=== PATIENT | male | born 1980 | race Caucasian/White ===

== ENCOUNTER 2017-06-02 00:27 | Emergency (ER) | payer BC ==
--- NOTE | 2017-06-02 00:41 | EDM.PDOC ---
ED HPI GENERAL MEDICAL PROBLEM - General Stated Complaint: LEFT KNEE PAIN Time Seen by Provider: 06/02/17 00:39 History Limitations: Reports: Language Barrier - History of Present Illness INITIAL COMMENTS - FREE TEXT/NARRATIVE: HISTORY AND PHYSICAL: History of present illness: Patient's a 36-year-old male presents with concern of left knee pain he's had prior meniscal and anterior cruciate injury and surgery he denies any new trauma he states he's had pain it's resulted in his difficulty ambulating due to the pain has been no fever chills nausea vomiting redness joint swelling. Review of systems: As per history of present illness and below otherwise all systems reviewed and negative. Past medical history: As per history of present illness and as reviewed below otherwise noncontributory. Surgical history: As per history of present illness and as reviewed below otherwise noncontributory. Social history: No reported history of drug or alcohol abuse. Family history: As per history of present illness and as reviewed below otherwise noncontributory. Physical exam: HEENT: Atraumatic, normocephalic, pupils reactive, negative for conjunctival pallor or scleral icterus, mucous membranes moist, throat clear, neck supple, nontender, trachea midline. Lungs: Clear to auscultation, breath sounds equal bilaterally, chest nontender. Heart: S1S2, regular, negative for clicks, rubs, or JVD. Abdomen: Soft, nondistended, nontender. Negative for masses or hepatosplenomegaly. Negative for costovertebral tenderness. Pelvis: Stable nontender. Genitourinary: Deferred. Rectal: Deferred. Extremities: Joints grossly stable is no point tenderness no erythema no effusion CMS neurovascular is unremarkable Neuro: Awake, alert, oriented. Cranial nerves II through XII unremarkable. Cerebellum unremarkable. Motor and sensory unremarkable throughout. Exam nonfocal. Diagnostics: X-ray left knee Therapeutics: Knee immobilizer/crutches Impression: #1 left knee pain Definitive disposition and diagnosis as appropriate pending reevaluation and review of above. - Related Data Allergies Allergy/AdvReac Type Severity Reaction Status Date / Time olanzapine [From Zyprexa] Allergy Other Verified 09/03/16 17:28 pregabalin [From Lyrica] Allergy Other Verified 09/03/16 17:28 Home Meds: Home Meds Benzonatate [Tessalon Perles] 100 mg PO QID PRN #40 cap 09/03/16 [Rx] Cephalexin [Keflex] 500 mg PO TID #30 capsule 09/03/16 [Rx] Past Medical History Musculoskeletal History: Reports: Back Pain, Chronic - Past Surgical History Musculoskeletal Surgical History: Reports: Shoulder Surgery, Other (See Below) Social & Family History - Family History Family Medical History: Noncontributory - Tobacco Use Smoking Status *Q: Current Every Day Smoker Years of Tobacco use: 20 Packs/Tins Daily: 0.2 Used Tobacco, but Quit: No Second Hand Smoke Exposure: Yes - Caffeine Use Caffeine Use: Reports: Coffee, Energy Drinks Other Caffeine Use: 3 cups per day - Recreational Drug Use Recreational Drug Use: No ED ROS GENERAL - Review of Systems Review Of Systems: ROS reveals no pertinent complaints other than HPI. ED EXAM, GENERAL - Physical Exam Exam: See Below (See dictation) Departure - Departure Time of Disposition: 00:41 Disposition: Home, Self-Care 01 Condition: Good Clinical Impression: Knee pain - Discharge Information Referrals: PCP,None [Primary Care Provider] - Additional Instructions: The following information is given to patients seen in the emergency department who are being discharged to home. This information is to outline your options for follow-up care. We provide all patients seen in our emergency department with a follow-up referral. The need for follow-up, as well as the timing and circumstances, are variable depending upon the specifics of your emergency department visit. If you don't have a primary care physician on staff, we will provide you with a referral. We always advise you to contact your personal physician following an emergency department visit to inform them of the circumstance of the visit and for follow-up with them and/or the need for any referrals to a consulting specialist. The emergency department will also refer you to a specialist when appropriate. This referral assures that you have the opportunity for followup care with a specialist. All of these measure are taken in an effort to provide you with optimal care, which includes your followup. Under all circumstances we always encourage you to contact your private physician who remains a resource for coordinating your care. When calling for followup care, please make the office aware that this follow-up is from your recent emergency room visit. If for any reason you are refused follow-up, please contact the [facility] emergency department at and asked to speak to the emergency department charge nurse. ALLEGRA [facility] - [facility] Professional Building [address] [place] [address], [address] [place] [address] Knee immobilizer crutches as directed called schedule appointment with orthopedic clinic above Motrin or Tylenol as directed return as needed as discussed
[2017-06-02 02:24] VITALS: BP 121/74
--- NOTE | 2017-06-03 13:11 | CR ---
EXAM DATE: 06/02/17 PATIENT'S AGE: 36 Patient: DILIA FOSTER Facility: [place], [place] Site . Site : [id number] Study: XRay Knee Left [id number]/27/2017 1:14:29 AM Ordering Physician: Ragini Gloria Final Report: Indication: Left knee pain since yesterday. Lateral-sided pain when walking down stairs. Technique: Left knee three views. Comparison: None. Findings: Sequela of prior intra medullary darryl in the visualized proximal tibia. No acute fracture or dislocation. No additional osseous abnormality. Soft tissues as imaged are unremarkable. Impression: No acute osseous abnormality. Dictated by Uri Lamar MD @ 06/02/2017 1:51:28 AM Dictated by: Uri Lamar MD @ 06/02/2017 01:51:32 (Electronic Signature) Report Signed by Proxy. [email or web address]
== END 2017-06-02 02:00 | disposition home or self-care (01) ==
LOC: MW.ED 00:27
DX: M25.562 Pain in left knee (principal); F17.210 Nicotine dependence, cigarettes, uncomplicated; Z88.8 Allergy status to other drugs, medicaments and biological substances
CPT/HCPCS: 73562-26-LT; 73562-LT; 99282; 99283

== ENCOUNTER 2017-09-18 08:32 | Day surgery (SDC) | payer BC ==
[~2017-09-18 08:32] MED LIST: Acetaminophen/HYDROcodone 325-5 MG Tab PO PRN; Lactated Ringers 1,000 ML IV SCH; ceFAZolin 2 GM in Premix Bag 1 BAG IV SCH
[2017-09-18] MEDS ORDERED: Lidocaine 2% 5 ML SDV ONE (09:00)
[2017-09-18] MEDS ORDERED: Propofol 200 MG/20 ML SDV ONE ×3 (09:00→10:53)
[2017-09-18] MEDS ORDERED: Midazolam 1 MG/ML 2 ML SDV ONE ×2 (09:01→09:32)
[2017-09-18] MEDS ORDERED: Sodium Chloride 0.9% 0 ML ONE (09:01)
[2017-09-18] MEDS ORDERED: ceFAZolin 1 GM Vial ONE ×2 (09:01→10:25)
[2017-09-18] MEDS ORDERED: fentaNYL 250 MCG/5 ML SDV ONE (09:01)
[2017-09-18] MEDS ORDERED: fentaNYL 100 MCG/2 ML SDV ONE (09:31)
[2017-09-18] MEDS ORDERED: HYDROmorphone 2 MG/ML Syringe ONE (09:32)
[2017-09-18] MEDS ORDERED: fentaNYL 100 MCG/2 ML SDV IVPUSH PRN (09:58)
--- NOTE | 2017-09-18 09:58 | PCM.PREANE ---
Preanesthetic Assessment - Procedure Proposed Procedure: lt knee arthroscopy - Anesthesia/Transfusion/Family Hx Anesthesia History: Prior Anesthesia Reaction (pt waked up violent. hx of PTSD) Type of Anesthesia Reaction: Other (see below) Other Type of Anesthesia Reaction Comment: "I wake up violent" Family History of Anesthesia Reaction: No Transfusion History: No Prior Transfusion(s) - Review of Systems General: No Symptoms Pulmonary: No Symptoms, Other (hx of smoking and asthma triggered in the winter. used ventolin this am) Cardiovascular: Other (cardiac ablation for SVT) Gastrointestinal: Other (controlled GERD) Neurological: No Symptoms Other: Reports: Depression, Anxiety - Physical Assessment NPO Status Date: 09/17/17 NPO Status Time: 00:00 O2 Sat by Pulse Oximetry: 95 Respiratory Rate: 16 Vital Signs: Last Vital Signs Temp 36.8 C 09/18/17 09:48 Pulse 85 09/18/17 09:48 Resp 16 09/18/17 09:48 BP 110/74 09/18/17 09:48 Pulse Ox 95 09/18/17 09:48 Height: 1.88 m Weight: 92.986 kg ASA Class: 2 Mental Status: Alert & Oriented x3 Airway Class: Mallampati = 1 Dentition: Reports: Normal Dentition Thyro-Mental Finger Breadths: 4 Mouth Opening Finger Breadths: 4 ROM/Head Extension: Full Lungs: Clear to Auscultation, Normal Respiratory Effort Cardiovascular: Regular Rate, Regular Rhythm - Allergies Allergies/Adverse Reactions: Allergies Allergy/AdvReac Type Severity Reaction Status Date / Time olanzapine [From Zyprexa] Allergy "messed Verified 09/16/17 08:07 with my head" pregabalin [From Lyrica] Allergy Cannot Verified 09/16/17 08:07 Remember - Blood Blood Available: No - Acknowledgements Anesthesia Type Planned: General Anesthesia Pt an Appropriate Candidate for the Planned Anesthesia: Yes Alternatives and Risks of Anesthesia Discussed w Pt/Guardian: Yes Pt/Guardian Understands and Agrees with Anesthesia Plan: Yes PreAnesthesia Questionnaire - Past Health History Medical/Surgical History: Denies Medical/Surgical History HEENT History: Reports: Other (See Below) Other HEENT History: wears glasses Cardiovascular History: Reports: Arrhythmia, Other (See Below) Other Cardiovascular History: hx cardiac ablation for SVT Respiratory History: Reports: Asthma Genitourinary History: Reports: None Musculoskeletal History: Reports: Back Pain, Chronic, Fracture Other Musculoskeletal History: hx fx tib/fib, fx ankles fx arm Neurological History: Reports: Concussion Psychiatric History: Reports: ADD, Anxiety, Depression Endocrine/Metabolic History: Reports: None Oncologic (Cancer) History: Reports: Basal Cell Carcinoma - Past Surgical History Head Surgeries/Procedures: Reports: None Cardiovascular Surgical History: Reports: Cardiac Ablation Neurological Surgical History: Reports: Lumbar Spine Other Neurological Surgeries/Procedures: back fusion Musculoskeletal Surgical History: Reports: Arthroscopic Knee, Shoulder Surgery, Other (See Below) Other Musculoskeletal Surgeries/Procedures:: surgical tx of tib/fib fx, knee surgery, removal of hardware to leg Dermatological Surgical History: Reports: Skin Biopsy - SUBSTANCE USE Smoking Status *Q: Current Every Day Smoker Tobacco Use Within Last Twelve Months: Cigarettes Second Hand Smoke Exposure: Yes Recreational Drug Use History: No - HOME MEDS Home Medications: Home Meds Acetaminophen [Tylenol Extra Strength] 2 tab PO ASDIRECTED PRN 09/16/17 [History ] Albuterol [Ventolin HFA] 2 puff INH ASDIRECTED PRN 09/16/17 [History] Ibuprofen 2 tab PO ASDIRECTED PRN 09/16/17 [History] Methylphenidate HCl [Methylphenidate ER] 36 mg PO DAILY 09/16/17 [History] Prazosin HCl [Prazosin] 2 mg PO BEDTIME 09/16/17 [History] Sertraline HCl 100 mg PO DAILY 09/16/17 [History] - CURRENT (IN HOUSE) MEDS Current Meds: Current Medications Hydrocodone Bitart/Acetaminophen ([place] 325-5 Mg) 1 - 2 tab PO Q4H PRN PRN Reason: Pain Cefazolin Sodium/Dextrose 2 gm (/ Premix) 50 mls @ 100 mls/hr IV ONCALL REBEKAH Lactated Ringer's (Ringers, Lactated) 1,000 mls @ 100 mls/hr IV ASDIRECTED REBEKAH Last Admin: 09/18/17 09:00 Dose: 100 mls/hr Discontinued Medications Cefazolin Sodium (Ancef) Confirm Administered Dose 2 gm .ROUTE .STK-MED ONE Stop: 09/18/17 09:02 Fentanyl (Sublimaze) Confirm Administered Dose 250 mcg .ROUTE .STK-MED ONE Stop: 09/18/17 09:02 Fentanyl (Sublimaze) Confirm Administered Dose 100 mcg .ROUTE .STK-MED ONE Stop: 09/18/17 09:32 Hydromorphone HCl (Dilaudid) Confirm Administered Dose 2 mg .ROUTE .STK-MED ONE Stop: 09/18/17 09:33 Sodium Chloride (Normal Saline) Confirm Administered Dose 20 mls @ as directed .ROUTE .STK-MED ONE Stop: 09/18/17 09:02 Lidocaine (Xylocaine-Mpf 2%) Confirm Administered Dose 10 ml .ROUTE .STK-MED ONE Stop: 09/18/17 09:01 Midazolam HCl (Versed 1 Mg/Ml) Confirm Administered Dose 2 mg .ROUTE .STK-MED ONE Stop: 09/18/17 09:02 Midazolam HCl (Versed 1 Mg/Ml) Confirm Administered Dose 2 mg .ROUTE .STK-MED ONE Stop: 09/18/17 09:33 Propofol (Diprivan 20 Ml) Confirm Administered Dose 400 mg .ROUTE .STK-MED ONE Stop: 09/18/17 09:01 Propofol (Diprivan 20 Ml) Confirm Administered Dose 200 mg .ROUTE .STK-MED ONE Stop: 09/18/17 09:32
[2017-09-18] MEDS ORDERED: Ketorolac 30 MG/ML SDV ONE (10:27)
[2017-09-18] MEDS ORDERED: Ondansetron 4 MG/2 ML SDV ONE (10:27)
[2017-09-18] MEDS ORDERED: diphenhydrAMINE 50 MG/ML SDV ONE (10:27)
[2017-09-18] MEDS ORDERED: Lidocaine 1% 20 ML MDV ONE (10:28)
--- NOTE | 2017-09-18 11:45 | PCM.OPNOTE ---
- General Post-Op/Procedure Note Date of Surgery/Procedure: 09/18/17 Operative Procedure(s): L knee arthroscopy with PLM Post-Op Diagnosis: DJD left knee, L knee lateral meniscus tear Anesthesia Technique: General LMA Primary Surgeon: Lima Bocanegra [employer] Clerk: Jennifer Calles in mLs: 5 Condition: Good Free Text/Narrative:: tt=18 min #[id number]
--- NOTE | 2017-09-18 12:28 | OR ---
SURGEON: Lima Bocanegra MD DATE OF PROCEDURE: 09/18/2017 PREOPERATIVE DIAGNOSIS: Left knee osteochondral defect. POSTOPERATIVE DIAGNOSES: 1. Left knee lateral meniscus tear. 2. Degenerative joint disease, left knee. PROCEDURE: Left knee arthroscopy with partial lateral meniscectomy and chondroplasty of the lateral tibial plateau. DELIVERY ROOM CLERK: Jennifer Calles PA-C. ANESTHESIA: General. ESTIMATED BLOOD LOSS: 5 mL. TOURNIQUET TIME: 18 minutes. COMPLICATIONS: None. DVT PROPHYLAXIS: Not indicated. IMPLANTS USED: None. BRIEF HISTORY: Diogo is a 37-year-old male, who has had persistent left knee pain. He does have a history of a left tibia IM rodding. He has previously undergone a left knee arthroscopy as well. He has developed recurrent pain in his left knee. An MRI did show a questionable osteochondral defect of the lateral tibial plateau. Due to his lack of response to conservative treatment, I did recommend surgical intervention. The risks and goals of the procedure were discussed with the patient and were documented preoperatively. He agreed to proceed. DESCRIPTION OF PROCEDURE: The patient was properly identified and brought to the operating room. He was transferred from the OR cart and placed on the operating table in supine position. General anesthesia was administered. After adequate anesthesia was obtained, a well-padded tourniquet was applied to the left lower extremity. The left lower extremity was then prepped in standard fashion using ChloraPrep solution. It was then sterilely draped. A time-out was performed to ensure correct site and procedure. Preoperative antibiotics were given. The surgical site had been marked preoperatively. An Esmarch was used to exsanguinate the left lower extremity and the tourniquet was inflated to 250 mmHg. A lateral portal arthrotomy was made. Blunt probe and trocar were introduced into the suprapatellar pouch. Camera, inflow, and outflow were assembled. No significant synovitis was noted. The patellofemoral joint was then visualized. No significant degenerative changes were noted. The patella appeared to track centrally. He did have abundant fat pad, which appeared to be impinging within the patellofemoral joint. I then extended down the lateral and medial gutter. No loose bodies were identified. I then entered the medial compartment. A medial portal arthrotomy was established. A blunt probe was inserted. The meniscus was extensively probed. No tearing was noted. The joint surfaces showed minor softening consistent with grade 1 chondromalacia. I then entered the notch. Both the ACL and PCL were visualized and probed and found to be intact. I then entered the lateral compartment. The lateral tibial plateau did show some degenerative fraying. This was probed. There was a loose piece along the central portion of the tibial plateau, which was resected with a shaver. This was not full thickness. At the completion, the area was again inspected and no full-thickness degenerative changes were noted. The meniscus was then probed. He did have degenerative fraying along the lateral and posterior horn of the lateral meniscus. A biter was used to resect this back to a stable remnant and a shaver was used to smooth the edges. The meniscus was again probed and found to be stable. I then returned to the patellofemoral joint. A portion of the fat pad was resected. No further impingement was noted. Instruments were then removed from the knee. The portal sites were closed with 3-0 nylon. Lidocaine 1% was injected along the portal tracts. Xeroform gauze was placed over the wound and a bulky dressing was applied. The tourniquet was then deflated. He was awakened from his anesthetic and transferred back to the operating room cart. He was brought to recovery room in stable condition. All needle and sponge counts were correct. JOSLYN / KOYB /[id number]
[2017-09-18 13:13] VITALS: BP 126/70
--- NOTE | 2017-09-18 13:25 | PCM.POSTAN ---
POST ANESTHESIA ASSESSMENT - MENTAL STATUS Mental Status: Alert, Oriented - RESPIRATORY Respiratory Status: Respiratory Rate WNL, Airway Patent, O2 Saturation Stable - CARDIOVASCULAR CV Status: Pulse Rate WNL - GASTROINTESTINAL GI Status: No Symptoms - PAIN Pain Score: 4 - POST OP HYDRATION Hydration Status: Adequate & Stable - OBSERVATIONS Free Text/Narrative:: no anesthesia problems
== END 2017-09-18 12:40 | disposition home or self-care (01) ==
LOC: MW.SDS 08:32
PROVIDERS: ATTEND Orthopaedic Surgery
DX: S83.232A Complex tear of medial meniscus, current injury, left knee, initial encounter (principal); Z79.1 Long term (current) use of non-steroidal anti-inflammatories (NSAID); Z79.899 Other long term (current) drug therapy; Z79.51 Long term (current) use of inhaled steroids; Z88.8 Allergy status to other drugs, medicaments and biological substances
CPT/HCPCS: 29881; 88304; J0690; J1170; J1200; J1885; J2405; J3010; J7120; 01400; J2250; J2704

== ENCOUNTER 2017-10-13 14:39 | Emergency (ER) | payer BC ==
[2017-10-13] MEDS ORDERED: Ketorolac 30 MG/ML SDV IVPUSH ONE (15:07)
[2017-10-13] MEDS ORDERED: Sodium Chloride 0.9% 1,000 ML IV ONE (15:07)
[2017-10-13 15:31] LABS: CHLORIDE,CL 107 mmol/L (98-110); SODIUM,NA 141 mmol/L (136-146)
--- NOTE | 2017-10-13 16:23 | EDM.PDOC ---
ED HPI GENERAL MEDICAL PROBLEM - General Chief Complaint: Chest Pain Stated Complaint: PASSING OUT, CHEST PAIN AND COUGHING Time Seen by Provider: 10/13/17 15:01 Source of Information: Reports: Patient History Limitations: Reports: No Limitations - History of Present Illness INITIAL COMMENTS - FREE TEXT/NARRATIVE: History of present illness: []Patient has had one month history of productive cough, chest pain with breathing, shortness of breath with exertion. Patient states he gets this yearly. Review of systems: As per history of present illness and below otherwise all systems reviewed and negative. Past medical history: As per history of present illness and as reviewed below otherwise noncontributory. Surgical history: As per history of present illness and as reviewed below otherwise noncontributory. Social history: No reported history of drug or alcohol abuse. Family history: As per history of present illness and as reviewed below otherwise noncontributory. Physical exam: General: Well developed, well nourished in NAD HEENT: Atraumatic, normocephalic, pupils reactive, negative for conjunctival pallor or scleral icterus, mucous membranes moist, throat clear, neck supple, nontender, trachea midline. Lungs: Clear to auscultation, breath sounds equal bilaterally, chest nontender. Heart: S1S2, regular, negative for clicks, rubs, or JVD. Abdomen: Soft, nondistended, nontender. Negative for masses or hepatosplenomegaly. Negative for costovertebral tenderness. Pelvis: Stable nontender. Genitourinary: Deferred. Rectal: Deferred. Extremities: Atraumatic, negative for cords or calf pain. Neurovascular unremarkable. Neuro: Awake, alert, oriented. Cranial nerves II through XII unremarkable. Cerebellum unremarkable. Motor and sensory unremarkable throughout. Exam nonfocal. Diagnostics: []S x-ray and labs are normal Therapeutics: [] Impression: []Bronchitis Plan: []Z-Ender as directed albuterol Definitive disposition and diagnosis as appropriate pending reevaluation and review of above. sternal Pain Score (Numeric/FACES): 4 - Related Data Allergies Allergy/AdvReac Type Severity Reaction Status Date / Time olanzapine [From Zyprexa] Allergy "messed Verified 10/13/17 15:50 with my head" pregabalin [From Lyrica] Allergy Cannot Verified 10/13/17 15:50 Remember Home Meds: Home Meds Acetaminophen [Tylenol Extra Strength] 2 tab PO ASDIRECTED PRN 09/16/17 [History ] Albuterol [Ventolin HFA] 2 puff INH ASDIRECTED PRN 09/16/17 [History] Ibuprofen 2 tab PO ASDIRECTED PRN 09/16/17 [History] Methylphenidate HCl [Methylphenidate ER] 36 mg PO DAILY 09/16/17 [History] Prazosin HCl [Prazosin] 2 mg PO BEDTIME 09/16/17 [History] Sertraline HCl 100 mg PO DAILY 09/16/17 [History] Albuterol Sulfate [Ventolin Hfa] 8 gm IH Q4HR PRN #1 hfa.aer.ad 10/13/17 [Rx] Azithromycin [Zithromax] 250 mg PO ASDIRECTED #6 tablet 10/13/17 [Rx] Past Medical History - Past Health History Medical/Surgical History: Denies Medical/Surgical History HEENT History: Reports: Other (See Below) Other HEENT History: wears glasses Cardiovascular History: Reports: Arrhythmia, Other (See Below) Other Cardiovascular History: hx cardiac ablation for SVT Respiratory History: Reports: Asthma Gastrointestinal History: Reports: None Genitourinary History: Reports: None Musculoskeletal History: Reports: Back Pain, Chronic, Fracture Other Musculoskeletal History: hx fx tib/fib, fx ankles fx arm Neurological History: Reports: Concussion Psychiatric History: Reports: ADD, Anxiety, Depression Endocrine/Metabolic History: Reports: None Hematologic History: Reports: None Immunologic History: Reports: None Oncologic (Cancer) History: Reports: Basal Cell Carcinoma - Infectious Disease History Infectious Disease History: Reports: Chicken Pox - Past Surgical History Head Surgeries/Procedures: Reports: None HEENT Surgical History: Reports: None Cardiovascular Surgical History: Reports: Cardiac Ablation Respiratory Surgical History: Reports: None GI Surgical History: Reports: None Male Surgical History: Reports: None Neurological Surgical History: Reports: Lumbar Spine Other Neurological Surgeries/Procedures: back fusion Musculoskeletal Surgical History: Reports: Arthroscopic Knee, Shoulder Surgery, Other (See Below) Other Musculoskeletal Surgeries/Procedures:: surgical tx of tib/fib fx, knee surgery, removal of hardware to leg Dermatological Surgical History: Reports: Skin Biopsy Social & Family History - Family History Family Medical History: Noncontributory - Tobacco Use Smoking Status *Q: Current Every Day Smoker Years of Tobacco use: 20 Packs/Tins Daily: 0.5 Used Tobacco, but Quit: No Second Hand Smoke Exposure: Yes - Caffeine Use Caffeine Use: Reports: Coffee, Energy Drinks Other Caffeine Use: 3 cups per day - Recreational Drug Use Recreational Drug Use: No Drug Use in Last 12 Months: No ED ROS GENERAL - Review of Systems Review Of Systems: See Below (See history of present illness) ED EXAM, GI/ABD - Physical Exam Exam: See Below (See history of present illness) Course - Vital Signs Last Recorded V/S: Last Vital Signs Temp 98.7 F 10/13/17 15:51 Pulse 95 10/13/17 15:51 Resp 18 10/13/17 15:51 BP 139/90 10/13/17 15:51 Pulse Ox 95 10/13/17 15:51 - Orders/Labs/Meds Orders: Active Orders 24 hr Category Date Time Status Chest 2V [CR] Stat Exams 10/13/17 15:06 Taken INFLUENZA A+B AG SCREEN [RM] Stat Lab 10/13/17 16:17 Ordered Labs: Laboratory Tests 10/13/17 10/13/17 Range/Units 14:50 14:50 WBC 11.47 H (4.0-11.0) K/uL RBC 5.51 (4.50-5.90) M/uL Hgb 16.6 (13.0-17.0) g/dL Hct 48.8 (38.0-50.0) % MCV 88.6 (80.0-98.0) fL MCH 30.1 (27.0-32.0) pg MCHC 34.0 (31.0-37.0) g/dL RDW Std Deviation 46.8 (28.0-62.0) fl RDW Coeff of Marlys 15 (11.0-15.0) % Plt Count 512 H (150-400) K/uL MPV 8.90 (7.40-12.00) fL Neut % (Auto) 60.9 (48.0-80.0) % Lymph % (Auto) 25.3 (16.0-40.0) % Winston % (Auto) 10.4 (0.0-15.0) % Eos % (Auto) 2.8 (0.0-7.0) % Baso % (Auto) 0.6 (0.0-1.5) % Neut # (Auto) 7.0 H (1.4-5.7) K/uL Lymph # (Auto) 2.9 H (0.6-2.4) K/uL Winston # (Auto) 1.2 H (0.0-0.8) K/uL Eos # (Auto) 0.3 (0.0-0.7) K/uL Baso # (Auto) 0.1 (0.0-0.1) K/uL Nucleated RBC % 0.0 /100WBC Nucleated RBCs # 0 K/uL Sodium 141 (136-146) mmol/L Potassium 3.8 (3.5-5.1) mmol/L Chloride 107 (98-110) mmol/L Carbon Dioxide 22 (21-31) mmol/L BUN 14 (6.0-23.0) mg/dL Creatinine 1.0 (0.6-1.5) mg/dL Est Cr Clr Drug Dosing TNP Estimated GFR (MDRD) > 60.0 ml/min Glucose 82 (60-110) mg/dL Calcium 10.4 (8.8-10.8) mg/dL Total Bilirubin 0.3 (0.1-1.5) mg/dL AST 28 (5-40) IU/L ALT 23 (8-54) IU/L Alkaline Phosphatase 119 (40-150) Total Protein 8.2 H (6.0-8.0) g/dL Albumin 4.8 (3.5-5.0) g/dL Globulin 3.4 (2.0-3.5) g/dL Albumin/Globulin Ratio 1.4 (1.3-2.8) Meds: Medications Discontinued Medications Generic Name Dose Route Start Last Admin Trade Name Freq PRN Reason Stop Dose Admin Sodium Chloride 1,000 mls @ 999 mls/hr 10/13/17 15:07 10/13/17 15:55 Normal Saline IV 10/13/17 16:07 999 mls/hr .Bolus ONE Administration Ketorolac Tromethamine 30 mg 10/13/17 15:07 10/13/17 15:55 Toradol IVPUSH 10/13/17 15:08 30 mg ONETIME ONE Administration Departure - Departure Time of Disposition: 16:23 Disposition: Home, Self-Care 01 Condition: Good Clinical Impression: Bronchitis - Discharge Information Referrals: PCP,None [Primary Care Provider] - Forms: ED Department Discharge Additional Instructions: The following information is given to patients seen in the emergency department who are being discharged to home. This information is to outline your options for follow-up care. We provide all patients seen in our emergency department with a follow-up referral. The need for follow-up, as well as the timing and circumstances, are variable depending upon the specifics of your emergency department visit. If you don't have a primary care physician on staff, we will provide you with a referral. We always advise you to contact your personal physician following an emergency department visit to inform them of the circumstance of the visit and for follow-up with them and/or the need for any referrals to a consulting specialist. The emergency department will also refer you to a specialist when appropriate. This referral assures that you have the opportunity for follow-up care with a specialist. All of these measure are taken in an effort to provide you with optimal care, which includes your follow-up. Under all circumstances we always encourage you to contact your private physician who remains a resource for coordinating your care. When calling for follow-up care, please make the office aware that this follow-up is from your recent emergency room visit. If for any reason you are refused follow-up, please contact the [facility] Emergency Department at and asked to speak to the emergency department charge nurse. Z-Ender and albuterol as directed follow-up with PMD return if symptoms worsen or change [facility] [address] [place] [id number] - My Orders Last 24 Hours: My Active Orders 10/13/17 15:06 Chest 2V [CR] Stat 10/13/17 16:17 INFLUENZA A+B AG SCREEN [RM] Stat - Assessment/Plan Last 24 Hours: My Active Orders 10/13/17 15:06 Chest 2V [CR] Stat 10/13/17 16:17 INFLUENZA A+B AG SCREEN [RM] Stat
[2017-10-13 22:12] VITALS: BP 133/79
--- NOTE | 2017-10-14 14:31 | CR ---
EXAM DATE: 10/13/17 PATIENT'S AGE: 37 Patient: DILIA FOSTER Facility: [place], [place] Site . Site : 1980 Study: XRay Chest [id number]/[id number] 3:30:45 PM Ordering Physician: Bismark Jasmine Final Report: INDICATION: Chest pain. Cough. Loss of consciousness. TECHNIQUE: PA and lateral chest. FINDINGS: Clear lungs. Normal heart size and pulmonary vascularity. Normal included skeletal thorax. IMPRESSION: Normal two view chest. Dictated by Markus Gtz MD @ 10/13/2017 3:32:41 PM Dictated by: Markus Gtz MD @ 10/13/2017 15:32:50 (Electronic Signature) Report Signed by Proxy. [facility] CENTERFilipe
== END 2017-10-13 17:21 | disposition home or self-care (01) ==
LOC: MW.ED 14:39
DX: J40 Bronchitis, not specified as acute or chronic (principal); F17.210 Nicotine dependence, cigarettes, uncomplicated; Z88.8 Allergy status to other drugs, medicaments and biological substances; Z79.899 Other long term (current) drug therapy
CPT/HCPCS: 36415; 71046; 80053; 85025; 87804; 93005; 96361; 96374; 99285; J1885; J7040; 99283

== ENCOUNTER 2020-09-26 15:45 | Observation (INO) | payer SELFPAY ==
[2020-09-26] MEDS ORDERED: Sodium Chloride 0.9% 2.5 ML Syringe FLUSH PRN (15:46)
[2020-09-26] MEDS ORDERED: Acetaminophen 650 MG Supp RECTAL ONE (15:49)
--- NOTE | 2020-09-26 15:53 | EDM.PDOC ---
ED HPI GENERAL MEDICAL PROBLEM - General Chief Complaint: Fever Stated Complaint: HIGH FEVER Time Seen by Provider: 09/26/20 15:46 - History of Present Illness INITIAL COMMENTS - FREE TEXT/NARRATIVE: History is very limited by clinical condition. Patient significant other reports that he has had a fever and altered mental status for approximately the last 2 days. She reports a history of chronic back pain as well. Further hi story is unavailable as the patient displays significant delirium and is not alert oriented responsive to questioning. - Related Data Allergies Allergy/AdvReac Type Severity Reaction Status Date / Time olanzapine [From Zyprexa] Allergy "messed Verified 10/13/17 15:50 with my head" pregabalin [From Lyrica] Allergy Cannot Verified 10/13/17 15:50 Remember Home Meds: Home Meds Acetaminophen [Tylenol Extra Strength] 2 tab PO ASDIRECTED PRN 09/16/17 [History] Albuterol [Ventolin HFA] 2 puff INH ASDIRECTED PRN 09/16/17 [History] Ibuprofen 2 tab PO ASDIRECTED PRN 09/16/17 [History] Methylphenidate HCl [Methylphenidate ER] 36 mg PO DAILY 09/16/17 [History] Prazosin HCl [Prazosin] 2 mg PO BEDTIME 09/16/17 [History] Sertraline HCl 100 mg PO DAILY 09/16/17 [History] Albuterol Sulfate [Ventolin Hfa] 8 gm IH Q4HR PRN #1 [id number].[id number] 10/13/17 [Rx] Azithromycin [Zithromax] 250 mg PO ASDIRECTED #6 tablet 10/13/17 [Rx] Past Medical History - Past Health History Medical/Surgical History: Denies Medical/Surgical History HEENT History: Reports: Other (See Below) Other HEENT History: wears glasses Cardiovascular History: Reports: Arrhythmia, Other (See Below) Other Cardiovascular History: hx cardiac ablation for SVT Respiratory History: Reports: Asthma Gastrointestinal History: Reports: None Genitourinary History: Reports: None Musculoskeletal History: Reports: Back Pain, Chronic, Fracture Other Musculoskeletal History: hx fx tib/fib, fx ankles fx arm Neurological History: Reports: Concussion Psychiatric History: Reports: ADD, Anxiety, Depression Endocrine/Metabolic History: Reports: None Hematologic History: Reports: None Immunologic History: Reports: None Oncologic (Cancer) History: Reports: Basal Cell Carcinoma - Infectious Disease History Infectious Disease History: Reports: Chicken Pox - Past Surgical History Head Surgeries/Procedures: Reports: None HEENT Surgical History: Reports: None Cardiovascular Surgical History: Reports: Cardiac Ablation Respiratory Surgical History: Reports: None GI Surgical History: Reports: None Male Surgical History: Reports: None Neurological Surgical History: Reports: Lumbar Spine Other Neurological Surgeries/Procedures: back fusion Musculoskeletal Surgical History: Reports: Arthroscopic Knee, Shoulder Surgery, Other (See Below) Other Musculoskeletal Surgeries/Procedures:: surgical tx of tib/fib fx, knee surgery, removal of hardware to leg Dermatological Surgical History: Reports: Skin Biopsy Social & Family History - Family History Family Medical History: No Pertinent Family History - Caffeine Use Caffeine Use: Reports: Coffee, Energy Drinks Other Caffeine Use: 3 cups per day ED ROS GENERAL - Review of Systems Review Of Systems: Unable To Obtain Reason Not Obtained: Clinical condition ED EXAM, GENERAL - Physical Exam Exam: See Below Free Text/Narrative:: General Appearance: No acute distress, appears comfortable Skin: No rash HEENT: Normocephalic/atraumatic, sclera anicteric, mucous membranes dry Neck: No focal midline tenderness, unable to reliably assess for meningismus Chest and Lungs: Bilateral breath sounds, clear to auscultation Cardiovascular: Tachycardic rate regular rhythm no murmur Abdomen: Soft, non-tender Back: Normal Musculoskeletal: No edema or tenderness Neurologic: Awake and alert but confused will mumble nonsense to questions intermittently will not follow commands ED GENERAL MEDICAL PROCEDURES - Lumbar Puncture Indication: Fever, Mental Status Change Consent Obtained: Other (emergant) Prep: Sterile Drapes, Betadine Local Anesthesia - Lidocaine (Xylocaine): 1% Plain Local Anesthetic Volume: 3cc Vertebral Interspace: L4/L5 Spinal Needle with Stylet: 20ga, 3.5 Inch (Adult) Number of Attempts: 1 Fluid Appearance: Clear Tubes Obtained: 4 Total Fluid Amount: Other (6) Complications: No Sterile Dressing: Adhesive Dressing #1 Interpretation EKG Date: 09/26/20 Time: 17:10 EKG Interpretation Comments: Sinus tachycardia with a rate of 107 ST elevation consistent with benign early repole pattern no acute ischemia QTC normal 411 Course - Vital Signs Last Recorded V/S: Last Vital Signs Temp 102.1 F H 09/26/20 17:13 Pulse 97 09/26/20 18:30 Resp 19 09/26/20 18:30 BP 119/71 09/26/20 18:30 Pulse Ox 95 09/26/20 18:30 - Orders/Labs/Meds Orders: Active Orders 24 hr Category Date Time Status Accu Check [Blood Glucose Check, Bedside] [RC] ONETIME Care 09/26/20 16:09 Active EKG Documentation Completion [RC] STAT Care 09/26/20 15:53 Active CULTURE BLOOD [BC] Stat Lab 09/26/20 15:50 Received CULTURE BLOOD [BC] Stat Lab 09/26/20 15:50 Received CULTURE CSF + SMEAR [RM] Stat Lab 09/26/20 16:50 Received DRUG SCREEN, URINE [URCHEM] Stat Lab 09/26/20 18:23 Received PROCALCITONIN [REF] Stat Lab 09/26/20 15:50 Received URINALYSIS W/MICROSCOPIC [UA W/MICROSCOPIC] [URIN] Stat Lab 09/26/20 18:23 Received Sodium Chloride 0.9% [Saline Flush] Med 09/26/20 15:46 Active 10 ml FLUSH ASDIRECTED PRN Sodium Chloride 0.9% [Saline Flush] Med 09/26/20 15:46 Active 2.5 ml FLUSH ASDIRECTED PRN Blood Culture x2 Reflex Set [OM.PC] Stat Oth 09/26/20 15:48 Ordered Saline Lock Insert [OM.PC] Stat Oth 09/26/20 15:46 Ordered Medication Orders Sodium Chloride (Saline Flush) 10 ml FLUSH ASDIRECTED PRN PRN Reason: Keep Vein Open Last Admin: 09/26/20 16:31 Dose: 10 ml Documented by: Admin: 09/26/20 16:01 Dose: 10 ml Documented by: JACINDA Sodium Chloride (Saline Flush) 2.5 ml FLUSH ASDIRECTED PRN PRN Reason: Keep Vein Open Last Admin: 09/26/20 16:31 Dose: 2.5 ml Documented by: SRI Labs: Laboratory Tests 09/26/20 09/26/20 09/26/20 Range/Units 15:50 15:50 15:50 WBC 11.63 H (4.0-11.0) K/uL RBC 5.43 (4.50-5.90) M/uL Hgb 15.7 (13.0-17.0) g/dL Hct 47.9 (38.0-50.0) % MCV 88.2 (80.0-98.0) fL MCH 28.9 (27.0-32.0) pg MCHC 32.8 (31.0-37.0) g/dL RDW Std Deviation 46.2 (28.0-62.0) fl RDW Coeff of Marlys 14 (11.0-15.0) % Plt Count 369 (150-400) K/uL MPV 8.70 (7.40-12.00) fL Neut % (Auto) 84.6 H (48.0-80.0) % Lymph % (Auto) 6.2 L (16.0-40.0) % [place] % (Auto) 8.9 (0.0-15.0) % Eos % (Auto) 0.1 (0.0-7.0) % Baso % (Auto) 0.2 (0.0-1.5) % Neut # (Auto) 9.9 H (1.4-5.7) K/uL Lymph # (Auto) 0.7 (0.6-2.4) K/uL [place] # (Auto) 1.0 H (0.0-0.8) K/uL Eos # (Auto) 0.0 (0.0-0.7) K/uL Baso # (Auto) 0.0 (0.0-0.1) K/uL Nucleated RBC % 0.0 /100WBC Nucleated RBCs # 0 K/uL Lactate 1.3 (0.20-2.00) mmol/L Sodium 136 (136-148) mmol/L Potassium 4.3 (3.5-5.1) mmol/L Chloride 99 (98-107) mmol/L Carbon Dioxide 26.4 (21.0-32.0) mmol/L BUN 13 (7.0-18.0) mg/dL Creatinine 1.1 (0.8-1.3) mg/dL Est Cr Clr Drug Dosing 97.00 mL/min Estimated GFR (MDRD) > 60.0 ml/min Glucose 107 H (74-106) mg/dL POC Glucose (60-110) mg/dL Calcium 9.6 (8.5-10.1) mg/dL Total Bilirubin 0.4 (0.2-1.0) mg/dL AST 33 (15-37) IU/L ALT 37 (14-63) IU/L Alkaline Phosphatase 99 (46-116) U/L Creatine Kinase 54 (26-308) U/L Troponin I (0.000-0.056) ng/mL Total Protein 7.6 (6.4-8.2) g/dL Albumin 3.5 (3.4-5.0) g/dL Globulin 4.1 H (2.6-4.0) g/dL Albumin/Globulin Ratio 0.9 (0.9-1.6) CSF Appearance CSF Color CSF WBC (0-5) /uL CSF RBC (0-0) /uL CSF Mononuclear Cells % CSF Polymorphonuclear % CSF Glucose (40-70) mg/dL CSF Total Protein (15-45) mg/dL Ethyl Alcohol <3 mg/dL Influenza Type A RNA (NEGATIVE) Influenza Type B RNA (NEGATIVE) SARS-CoV-2 RNA (MICHAELA) (NEGATIVE) 09/26/20 09/26/20 09/26/20 Range/Units 15:50 15:55 16:50 WBC (4.0-11.0) K/uL RBC (4.50-5.90) M/uL Hgb (13.0-17.0) g/dL Hct (38.0-50.0) % MCV (80.0-98.0) fL MCH (27.0-32.0) pg MCHC (31.0-37.0) g/dL RDW Std Deviation (28.0-62.0) fl RDW Coeff of Marlys (11.0-15.0) % Plt Count (150-400) K/uL MPV (7.40-12.00) fL Neut % (Auto) (48.0-80.0) % Lymph % (Auto) (16.0-40.0) % [place] % (Auto) (0.0-15.0) % Eos % (Auto) (0.0-7.0) % Baso % (Auto) (0.0-1.5) % Neut # (Auto) (1.4-5.7) K/uL Lymph # (Auto) (0.6-2.4) K/uL [place] # (Auto) (0.0-0.8) K/uL Eos # (Auto) (0.0-0.7) K/uL Baso # (Auto) (0.0-0.1) K/uL Nucleated RBC % /100WBC Nucleated RBCs # K/uL Lactate (0.20-2.00) mmol/L Sodium (136-148) mmol/L Potassium (3.5-5.1) mmol/L Chloride (98-107) mmol/L Carbon Dioxide (21.0-32.0) mmol/L BUN (7.0-18.0) mg/dL Creatinine (0.8-1.3) mg/dL Est Cr Clr Drug Dosing mL/min Estimated GFR (MDRD) ml/min Glucose (74-106) mg/dL POC Glucose (60-110) mg/dL Calcium (8.5-10.1) mg/dL Total Bilirubin (0.2-1.0) mg/dL AST (15-37) IU/L ALT (14-63) IU/L Alkaline Phosphatase (46-116) U/L Creatine Kinase (26-308) U/L Troponin I < 0.050 (0.000-0.056) ng/mL Total Protein (6.4-8.2) g/dL Albumin (3.4-5.0) g/dL Globulin (2.6-4.0) g/dL Albumin/Globulin Ratio (0.9-1.6) CSF Appearance CLEAR CSF Color COLORLESS CSF WBC 1 (0-5) /uL CSF RBC 0 (0-0) /uL CSF Mononuclear Cells 0.0 % CSF Polymorphonuclear 100.0 % CSF Glucose (40-70) mg/dL CSF Total Protein (15-45) mg/dL Ethyl Alcohol mg/dL Influenza Type A RNA NEGATIVE (NEGATIVE) Influenza Type B RNA NEGATIVE (NEGATIVE) SARS-CoV-2 RNA (MICHAELA) NEGATIVE (NEGATIVE) 09/26/20 09/26/20 Range/Units 16:50 16:58 WBC (4.0-11.0) K/uL RBC (4.50-5.90) M/uL Hgb (13.0-17.0) g/dL Hct (38.0-50.0) % MCV (80.0-98.0) fL MCH (27.0-32.0) pg MCHC (31.0-37.0) g/dL RDW Std Deviation (28.0-62.0) fl RDW Coeff of Marlys (11.0-15.0) % Plt Count (150-400) K/uL MPV (7.40-12.00) fL Neut % (Auto) (48.0-80.0) % Lymph % (Auto) (16.0-40.0) % [place] % (Auto) (0.0-15.0) % Eos % (Auto) (0.0-7.0) % Baso % (Auto) (0.0-1.5) % Neut # (Auto) (1.4-5.7) K/uL Lymph # (Auto) (0.6-2.4) K/uL [place] # (Auto) (0.0-0.8) K/uL Eos # (Auto) (0.0-0.7) K/uL Baso # (Auto) (0.0-0.1) K/uL Nucleated RBC % /100WBC Nucleated RBCs # K/uL Lactate (0.20-2.00) mmol/L Sodium (136-148) mmol/L Potassium (3.5-5.1) mmol/L Chloride (98-107) mmol/L Carbon Dioxide (21.0-32.0) mmol/L BUN (7.0-18.0) mg/dL Creatinine (0.8-1.3) mg/dL Est Cr Clr Drug Dosing mL/min Estimated GFR (MDRD) ml/min Glucose (74-106) mg/dL POC Glucose 113 H (60-110) mg/dL Calcium (8.5-10.1) mg/dL Total Bilirubin (0.2-1.0) mg/dL AST (15-37) IU/L ALT (14-63) IU/L Alkaline Phosphatase (46-116) U/L Creatine Kinase (26-308) U/L Troponin I (0.000-0.056) ng/mL Total Protein (6.4-8.2) g/dL Albumin (3.4-5.0) g/dL Globulin (2.6-4.0) g/dL Albumin/Globulin Ratio (0.9-1.6) CSF Appearance CSF Color CSF WBC (0-5) /uL CSF RBC (0-0) /uL CSF Mononuclear Cells % CSF Polymorphonuclear % CSF Glucose 73.0 H (40-70) mg/dL CSF Total Protein 34 (15-45) mg/dL Ethyl Alcohol mg/dL Influenza Type A RNA (NEGATIVE) Influenza Type B RNA (NEGATIVE) SARS-CoV-2 RNA (MICHAELA) (NEGATIVE) Meds: Medications Generic Name Dose Route Start Last Admin Trade Name Freq PRN Reason Stop Dose Admin Sodium Chloride 10 ml 09/26/20 15:46 09/26/20 16:31 Saline Flush FLUSH 10 ml ASDIRECTED PRN Administration Keep Vein Open Sodium Chloride 2.5 ml 09/26/20 15:46 09/26/20 16:31 Saline Flush FLUSH 2.5 ml ASDIRECTED PRN Administration Keep Vein Open Discontinued Medications Generic Name Dose Route Start Last Admin Trade Name Freq PRN Reason Stop Dose Admin Acetaminophen 650 mg 09/26/20 15:49 09/26/20 16:00 Tylenol RECTAL 09/26/20 15:50 650 mg NOW ONE Administration Fentanyl 50 mcg 09/26/20 16:29 09/26/20 16:44 Fentanyl IVPUSH 09/26/20 16:30 50 mcg ONETIME ONE Administration Ceftriaxone Sodium/Dextrose 2 50 mls @ 100 mls/hr 09/26/20 16:14 09/26/20 16:32 gm/ Premix IV 09/26/20 16:43 100 mls/hr ONETIME ONE Administration Lactated Ringer's 1,000 mls @ 999 mls/hr 09/26/20 16:22 09/26/20 16:32 Ringers, Lactated IV 09/26/20 17:22 999 mls/hr .BOLUS ONE Administration Lorazepam 2 mg 09/26/20 15:55 09/26/20 16:00 Ativan IVPUSH 09/26/20 15:56 2 mg ONETIME ONE Administration Departure - Departure Time of Disposition: 18:49 Disposition: Refer to Observation Condition: Fair Clinical Impression: Fever, Altered mental state - Discharge Information *PRESCRIPTION DRUG MONITORING PROGRAM REVIEWED*: Not Applicable *COPY OF PRESCRIPTION DRUG MONITORING REPORT IN PATIENT PROSPER: Not Applicable Referrals: Flavia Delatorre MD [Primary Care Provider] - Forms: ED Department Discharge Critical Care Note - Critical Care Note Total Time (mins): 50 Comments: Patient presented with acute altered mental status requiring immediate evaluation complex diagnostic decision making and resuscitation for tachycardia Sepsis Event Note (ED) - Focused Exam Vital Signs: Vital Signs Temp Temp Pulse Resp BP Pulse Ox 09/26/20 18:30 97 19 119/71 95 09/26/20 18:01 100 21 H 107/56 L 95 09/26/20 17:13 102.1 F H 113 H 23 H 138/78 95 09/26/20 16:00 102.0 F H 09/26/20 15:46 115 H 26 H 140/88 97 - My Orders Last 24 Hours: My Active Orders 09/26/20 15:46 Sodium Chloride 0.9% [Saline Flush] 10 ml FLUSH ASDIRECTED PRN Sodium Chloride 0.9% [Saline Flush] 2.5 ml FLUSH ASDIRECTED PRN Saline Lock Insert [OM.PC] Stat 09/26/20 15:48 Blood Culture x2 Reflex Set [OM.PC] Stat 09/26/20 15:50 CULTURE BLOOD [BC] Stat CULTURE BLOOD [BC] Stat PROCALCITONIN [REF] Stat 09/26/20 15:53 EKG Documentation Completion [RC] STAT 09/26/20 16:09 Accu Check [Blood Glucose Check, Bedside] [RC] ONETIME 09/26/20 16:50 CULTURE CSF + SMEAR [RM] Stat 09/26/20 18:23 DRUG SCREEN, URINE [URCHEM] Stat URINALYSIS W/MICROSCOPIC [UA W/MICROSCOPIC] [URIN] Stat - Assessment/Plan Last 24 Hours: My Active Orders 09/26/20 15:46 Sodium Chloride 0.9% [Saline Flush] 10 ml FLUSH ASDIRECTED PRN Sodium Chloride 0.9% [Saline Flush] 2.5 ml FLUSH ASDIRECTED PRN Saline Lock Insert [OM.PC] Stat 09/26/20 15:48 Blood Culture x2 Reflex Set [OM.PC] Stat 09/26/20 15:50 CULTURE BLOOD [BC] Stat CULTURE BLOOD [BC] Stat PROCALCITONIN [REF] Stat 09/26/20 15:53 EKG Documentation Completion [RC] STAT 09/26/20 16:09 Accu Check [Blood Glucose Check, Bedside] [RC] ONETIME 09/26/20 16:50 CULTURE CSF + SMEAR [RM] Stat 09/26/20 18:23 DRUG SCREEN, URINE [URCHEM] Stat URINALYSIS W/MICROSCOPIC [UA W/MICROSCOPIC] [URIN] Stat Assessment:: 40-year-old male with unclear history presenting with fever and altered mental status. Sepsis is a consideration given the degree of altered mental status must consider meningitis encephalitis etc. as well. Pneumonia possible but lungs are clear patient given her usual candidate for urinary tract infection. There is nothing provide any history that would suggest risk factors for epidural abscess or spinal osteomyelitis. However, these were considered. Patient mildly tachycardic labs including CBC, CMP, procalcitonin, urinalysis, lactic acid, troponin are all pending as well as EKG. We will prioritize CT scan and LP. Patient's medical record references sertraline and serotonin syndrome is considered though this would be a diagnosis of exclusion. Patient is somewhat agitated and in order to allow for appropriate evaluation 2 mg of Ativan will be given. 1656: Patient was somewhat more communicative after the 2 mg of Ativan he underwent an LP was not so that he has had them before. However he remains confused and is not consentable. Given the concern for meningitis this is felt to be an emergent procedure and we proceeded with lumbar puncture without immediate complication. White count minimally elevated lactate normal sepsis unlikely. Ceftriaxone infusing. 184: On reassessment the patient is somewhat more lucid but still altered. He states that he was placed on keflex earlier today. However, he can't recall why. He denies any etOH or drugs. He also denies any prescription medications. He states that he has been taking APAP and ibuprofen alternating. He denies dysuria or hematuria. Patient remains significantly altered though he is more lucid now. Given this persistent altered mental status and the unclear etiology of his symptoms patient was discussed in full with Dr. Ojeda and we will admit for observation and reassessment. I do think the patient is stable for [facility] bed.
[2020-09-26] MEDS ORDERED: LORazepam 2 MG/ML SDV IVPUSH ONE (15:55)
[2020-09-26] MEDS: Sodium Chloride 0.9% 10 ML Syringe FLUSH PRN ×2 (16:01→16:31)
[2020-09-26] MEDS ORDERED: cefTRIAXone 2 GM in Premix Bag 1 BAG IV ONE (16:14)
[2020-09-26] MEDS ORDERED: Lactated Ringers 1,000 ML IV ONE (16:22)
[2020-09-26 16:25] LABS: BLOOD UREA NITROGEN,BUN 13 mg/dL (7.0-18.0); CARBON DIOXIDE,CO2 26.4 mmol/L (21.0-32.0); CHLORIDE,CL 99 mmol/L (98-107); GLUCOSE RANDOM 107 mg/dL (74-106); POTASSIUM,K 4.3 mmol/L (3.5-5.1); SODIUM,NA 136 mmol/L (136-148)
[2020-09-26] MEDS ORDERED: fentaNYL 50 MCG/ML SDV IVPUSH ONE (16:29)
[2020-09-26 16:46] LABS: CORONAVIRUS COVID-19 NAA NEGATIVE (NEGATIVE); INFLUENZA A NAA NEGATIVE (NEGATIVE); INFLUENZA B NAA NEGATIVE (NEGATIVE)
--- NOTE | 2020-09-26 17:04 | CR ---
INDICATION: Fever. TECHNIQUE: Chest 1 view. COMPARISON: 10/13/2017. FINDINGS: Cardiovascular and mediastinum: Heart size and vasculature are normal in caliber and appearance. Mediastinum is within normal limits. Lungs and pleural space: Lungs are clear. No sign of infiltrate or mass. No sign of pleural effusion. No pneumothorax. Bones and soft tissues: No significant findings. IMPRESSION: No findings are seen to explain fever. Dictated by Yung Blanca MD @ Sep 26 2020 5:01PM Signed by Dr. Yung Blanca @ Sep 26 2020 5:02PM
--- NOTE | 2020-09-26 17:09 | CT ---
INDICATION: AMS. Fever TECHNIQUE: CT head without contrast. COMPARISON: None available FINDINGS: There is mild artifact near the skullbase. The ventricles and sulci are within normal limits for the patient`s age. There is no mass effect or midline shift. There is no loss of gunter-white differentiation. There is no evidence of a gross acute intracranial hemorrhage. No acute calvarial fracture is seen. There is minimal ethmoid sinus mucosal thickening. The mastoid air cells are clear. The visualized orbits are within normal limits. IMPRESSION: No evidence of a gross acute intracranial hemorrhage, mass effect or loss of gunter-white differentiation. Please note that all CT scans at this facility use dose modulation, iterative reconstruction, and/or weight-based dosing when appropriate to reduce radiation dose to as low as reasonably achievable. Dictated by Adal Nesbitt MD @ Sep 26 2020 5:00PM Signed by Dr. Adal Nesbitt @ Sep 26 2020 5:08PM
[2020-09-26] MEDS ORDERED: Ibuprofen 600 MG Tab PO ONE (19:41)
[2020-09-26] MEDS ORDERED: Sodium Chloride 0.9% 1,000 ML IV SCH ×2 (23:30)
--- NOTE | 2020-09-26 23:30 | PCM.HP.2 ---
H&P History of Present Illness - General Date of Service: 09/26/20 Admit Problem/Dx: Admission Diagnosis/Problem Admission Diagnosis/Problem Altered mental status - History of Present Illness Initial Comments - Free Text/Narative: 40 yo male with pmh of PTSD, asthma who presents to the ED with complaints of fever and altered mental status. Patient has had fevers, muscle aches and headaches for three days. reports same symptoms. Today he became lethargic and his mentation slowed prompting his to bring him to the ED. In the ED he was noted ot have a fever, CSF analysis was normal. CXR clear. - Related Data Allergies/Adverse Reactions: Allergies Allergy/AdvReac Type Severity Reaction Status Date / Time olanzapine [From Zyprexa] Allergy "messed Verified 10/13/17 15:50 with my head" Penicillins Allergy Other Verified 09/27/20 12:04 pregabalin [From Lyrica] Allergy Cannot Verified 10/13/17 15:50 Remember Home Medications: Home Meds Methylphenidate HCl [Methylphenidate ER] 36 mg PO DAILY 09/16/17 [History] Prazosin HCl [Prazosin] 2 mg PO BEDTIME 09/16/17 [History] Sertraline HCl 100 mg PO DAILY 09/16/17 [History] Past Medical History - Past Health History Medical/Surgical History: Denies Medical/Surgical History HEENT History: Reports: Other (See Below) Other HEENT History: wears glasses Cardiovascular History: Reports: Arrhythmia, Other (See Below) Other Cardiovascular History: hx cardiac ablation for SVT Respiratory History: Reports: Asthma Gastrointestinal History: Reports: None Genitourinary History: Reports: None Musculoskeletal History: Reports: Back Pain, Chronic, Fracture Other Musculoskeletal History: hx fx tib/fib, fx ankles fx arm Neurological History: Reports: Concussion Psychiatric History: Reports: ADD, Anxiety, Depression Endocrine/Metabolic History: Reports: None Hematologic History: Reports: None Immunologic History: Reports: None Oncologic (Cancer) History: Reports: Basal Cell Carcinoma - Infectious Disease History Infectious Disease History: Reports: Chicken Pox - Past Surgical History Head Surgeries/Procedures: Reports: None HEENT Surgical History: Reports: None Cardiovascular Surgical History: Reports: Cardiac Ablation Respiratory Surgical History: Reports: None GI Surgical History: Reports: None Male Surgical History: Reports: None Neurological Surgical History: Reports: Lumbar Spine Other Neurological Surgeries/Procedures: back fusion Musculoskeletal Surgical History: Reports: Arthroscopic Knee, Shoulder Surgery, Other (See Below) Other Musculoskeletal Surgeries/Procedures:: surgical tx of tib/fib fx, knee surgery, removal of hardware to leg Dermatological Surgical History: Reports: Skin Biopsy Social & Family History - Family History Family Medical History: No Pertinent Family History - Tobacco Use Tobacco Use Status *Q: Current Some Day Tobacco User Years of Tobacco use: 20 Packs/Tins Daily: 0.2 - Caffeine Use Caffeine Use: Reports: Coffee, Soda Other Caffeine Use: 3 cups per day - Recreational Drug Use Recreational Drug Use: No H&P Review of Systems - Review of Systems: Review Of Systems: Comprehensive ROS is negative, except as noted in HPI. Exam - Exam Exam: See Below - Vital Signs Vital Signs: Last Vital Signs Temp 36.8 C 09/26/20 20:25 Pulse 104 H 09/26/20 20:25 Resp 18 09/26/20 20:25 BP 114/73 09/26/20 20:25 Pulse Ox 94 L 09/26/20 20:25 Weight: 90.9 kg - Exam General: Oriented, Lethargic. No: Mild Distress HEENT: Mucosa Moist & [place] Neck: Supple, Trachea Midline Lungs: Clear to Auscultation, Normal Respiratory Effort GI/Abdominal Exam: Soft, Non-Tender, No Distention (Male) Exam: Normal Inspection. No: Inguinal Lymphadenopathy, Penile Lesions, Rash, Scrotal Swelling Extremities: Non-Tender, No Pedal Edema Skin: Warm, Dry, Intact Neurological: Cranial Nerves Intact. No: Focal Deficit - Patient Data Lab Results Last 24 hrs: Laboratory Results - last 24 hr 09/26/20 09/26/20 09/26/20 Range/Units 15:50 15:50 15:50 WBC 11.63 H (4.0-11.0) K/uL RBC 5.43 (4.50-5.90) M/uL Hgb 15.7 (13.0-17.0) g/dL Hct 47.9 (38.0-50.0) % MCV 88.2 (80.0-98.0) fL MCH 28.9 (27.0-32.0) pg MCHC 32.8 (31.0-37.0) g/dL RDW Std Deviation 46.2 (28.0-62.0) fl RDW Coeff of Marlys 14 (11.0-15.0) % Plt Count 369 (150-400) K/uL MPV 8.70 (7.40-12.00) fL Neut % (Auto) 84.6 H (48.0-80.0) % Lymph % (Auto) 6.2 L (16.0-40.0) % Sully % (Auto) 8.9 (0.0-15.0) % Eos % (Auto) 0.1 (0.0-7.0) % Baso % (Auto) 0.2 (0.0-1.5) % Neut # (Auto) 9.9 H (1.4-5.7) K/uL Lymph # (Auto) 0.7 (0.6-2.4) K/uL Sully # (Auto) 1.0 H (0.0-0.8) K/uL Eos # (Auto) 0.0 (0.0-0.7) K/uL Baso # (Auto) 0.0 (0.0-0.1) K/uL Nucleated RBC % 0.0 /100WBC Nucleated RBCs # 0 K/uL Lactate 1.3 (0.20-2.00) mmol/L Sodium 136 (136-148) mmol/L Potassium 4.3 (3.5-5.1) mmol/L Chloride 99 (98-107) mmol/L Carbon Dioxide 26.4 (21.0-32.0) mmol/L BUN 13 (7.0-18.0) mg/dL Creatinine 1.1 (0.8-1.3) mg/dL Est Cr Clr Drug Dosing 97.00 mL/min Estimated GFR (MDRD) > 60.0 ml/min Glucose 107 H (74-106) mg/dL POC Glucose (60-110) mg/dL Calcium 9.6 (8.5-10.1) mg/dL Total Bilirubin 0.4 (0.2-1.0) mg/dL AST 33 (15-37) IU/L ALT 37 (14-63) IU/L Alkaline Phosphatase 99 (46-116) U/L Creatine Kinase 54 (26-308) U/L Troponin I (0.000-0.056) ng/mL Total Protein 7.6 (6.4-8.2) g/dL Albumin 3.5 (3.4-5.0) g/dL Globulin 4.1 H (2.6-4.0) g/dL Albumin/Globulin Ratio 0.9 (0.9-1.6) Urine Color Urine Appearance Urine pH (5.0-8.0) Ur Specific [place] (1.001-1.035) Urine Protein (NEGATIVE) mg/dL Urine Glucose (UA) (NEGATIVE) mg/dL Urine Ketones (NEGATIVE) mg/dL Urine Occult Blood (NEGATIVE) Urine Nitrite (NEGATIVE) Urine Bilirubin (NEGATIVE) Urine Urobilinogen (<2.0) EU/dL Ur Leukocyte Esterase (NEGATIVE) Urine RBC (0-2/HPF) Urine WBC (0-5/HPF) Ur Epithelial Cells (NONE-FEW) Urine Bacteria (NEGATIVE) CSF Appearance CSF Color CSF WBC (0-5) /uL CSF RBC (0-0) /uL CSF Mononuclear Cells % CSF Polymorphonuclear % CSF Glucose (40-70) mg/dL CSF Total Protein (15-45) mg/dL Urine Opiates Screen (NEGATIVE) Ur Oxycodone Screen (NEGATIVE) Urine Methadone Screen (NEGATIVE) Ur Barbiturates Screen (NEGATIVE) Ur Phencyclidine Scrn (NEGATIVE) Ur Amphetamine Screen (NEGATIVE) U Methamphetamines Scrn (NEGATIVE) U Benzodiazepines Scrn (NEGATIVE) U Cocaine Metab Screen (NEGATIVE) U Marijuana (THC) Screen (NEGATIVE) Ethyl Alcohol <3 mg/dL Influenza Type A RNA (NEGATIVE) Influenza Type B RNA (NEGATIVE) SARS-CoV-2 RNA (MICHAELA) (NEGATIVE) 09/26/20 09/26/20 09/26/20 Range/Units 15:50 15:55 16:50 WBC (4.0-11.0) K/uL RBC (4.50-5.90) M/uL Hgb (13.0-17.0) g/dL Hct (38.0-50.0) % MCV (80.0-98.0) fL MCH (27.0-32.0) pg MCHC (31.0-37.0) g/dL RDW Std Deviation (28.0-62.0) fl RDW Coeff of Marlys (11.0-15.0) % Plt Count (150-400) K/uL MPV (7.40-12.00) fL Neut % (Auto) (48.0-80.0) % Lymph % (Auto) (16.0-40.0) % Sully % (Auto) (0.0-15.0) % Eos % (Auto) (0.0-7.0) % Baso % (Auto) (0.0-1.5) % Neut # (Auto) (1.4-5.7) K/uL Lymph # (Auto) (0.6-2.4) K/uL Sully # (Auto) (0.0-0.8) K/uL Eos # (Auto) (0.0-0.7) K/uL Baso # (Auto) (0.0-0.1) K/uL Nucleated RBC % /100WBC Nucleated RBCs # K/uL Lactate (0.20-2.00) mmol/L Sodium (136-148) mmol/L Potassium (3.5-5.1) mmol/L Chloride (98-107) mmol/L Carbon Dioxide (21.0-32.0) mmol/L BUN (7.0-18.0) mg/dL Creatinine (0.8-1.3) mg/dL Est Cr Clr Drug Dosing mL/min Estimated GFR (MDRD) ml/min Glucose (74-106) mg/dL POC Glucose (60-110) mg/dL Calcium (8.5-10.1) mg/dL Total Bilirubin (0.2-1.0) mg/dL AST (15-37) IU/L ALT (14-63) IU/L Alkaline Phosphatase (46-116) U/L Creatine Kinase (26-308) U/L Troponin I < 0.050 (0.000-0.056) ng/mL Total Protein (6.4-8.2) g/dL Albumin (3.4-5.0) g/dL Globulin (2.6-4.0) g/dL Albumin/Globulin Ratio (0.9-1.6) Urine Color Urine Appearance Urine pH (5.0-8.0) Ur Specific [place] (1.001-1.035) Urine Protein (NEGATIVE) mg/dL Urine Glucose (UA) (NEGATIVE) mg/dL Urine Ketones (NEGATIVE) mg/dL Urine Occult Blood (NEGATIVE) Urine Nitrite (NEGATIVE) Urine Bilirubin (NEGATIVE) Urine Urobilinogen (<2.0) EU/dL Ur Leukocyte Esterase (NEGATIVE) Urine RBC (0-2/HPF) Urine WBC (0-5/HPF) Ur Epithelial Cells (NONE-FEW) Urine Bacteria (NEGATIVE) CSF Appearance CLEAR CSF Color COLORLESS CSF WBC 1 (0-5) /uL CSF RBC 0 (0-0) /uL CSF Mononuclear Cells 0.0 % CSF Polymorphonuclear 100.0 % CSF Glucose (40-70) mg/dL CSF Total Protein (15-45) mg/dL Urine Opiates Screen (NEGATIVE) Ur Oxycodone Screen (NEGATIVE) Urine Methadone Screen (NEGATIVE) Ur Barbiturates Screen (NEGATIVE) Ur Phencyclidine Scrn (NEGATIVE) Ur Amphetamine Screen (NEGATIVE) U Methamphetamines Scrn (NEGATIVE) U Benzodiazepines Scrn (NEGATIVE) U Cocaine Metab Screen (NEGATIVE) U Marijuana (THC) Screen (NEGATIVE) Ethyl Alcohol mg/dL Influenza Type A RNA NEGATIVE (NEGATIVE) Influenza Type B RNA NEGATIVE (NEGATIVE) SARS-CoV-2 RNA (MICHAELA) NEGATIVE (NEGATIVE) 09/26/20 09/26/20 09/26/20 Range/Units 16:50 16:58 18:23 WBC (4.0-11.0) K/uL RBC (4.50-5.90) M/uL Hgb (13.0-17.0) g/dL Hct (38.0-50.0) % MCV (80.0-98.0) fL MCH (27.0-32.0) pg MCHC (31.0-37.0) g/dL RDW Std Deviation (28.0-62.0) fl RDW Coeff of Marlys (11.0-15.0) % Plt Count (150-400) K/uL MPV (7.40-12.00) fL Neut % (Auto) (48.0-80.0) % Lymph % (Auto) (16.0-40.0) % Sully % (Auto) (0.0-15.0) % Eos % (Auto) (0.0-7.0) % Baso % (Auto) (0.0-1.5) % Neut # (Auto) (1.4-5.7) K/uL Lymph # (Auto) (0.6-2.4) K/uL [place]ully # (Auto) (0.0-0.8) K/uL Eos # (Auto) (0.0-0.7) K/uL Baso # (Auto) (0.0-0.1) K/uL Nucleated RBC % /100WBC Nucleated RBCs # K/uL Lactate (0.20-2.00) mmol/L Sodium (136-148) mmol/L Potassium (3.5-5.1) mmol/L Chloride (98-107) mmol/L Carbon Dioxide (21.0-32.0) mmol/L BUN (7.0-18.0) mg/dL Creatinine (0.8-1.3) mg/dL Est Cr Clr Drug Dosing mL/min Estimated GFR (MDRD) ml/min Glucose (74-106) mg/dL POC Glucose 113 H (60-110) mg/dL Calcium (8.5-10.1) mg/dL Total Bilirubin (0.2-1.0) mg/dL AST (15-37) IU/L ALT (14-63) IU/L Alkaline Phosphatase (46-116) U/L Creatine Kinase (26-308) U/L Troponin I (0.000-0.056) ng/mL Total Protein (6.4-8.2) g/dL Albumin (3.4-5.0) g/dL Globulin (2.6-4.0) g/dL Albumin/Globulin Ratio (0.9-1.6) Urine Color YELLOW Urine Appearance CLEAR Urine pH 7.0 (5.0-8.0) Ur Specific [place] 1.020 (1.001-1.035) Urine Protein NEGATIVE (NEGATIVE) mg/dL Urine Glucose (UA) NEGATIVE (NEGATIVE) mg/dL Urine Ketones NEGATIVE (NEGATIVE) mg/dL Urine Occult Blood TRACE-INTACT H (NEGATIVE) Urine Nitrite NEGATIVE (NEGATIVE) Urine Bilirubin NEGATIVE (NEGATIVE) Urine Urobilinogen 0.2 (<2.0) EU/dL Ur Leukocyte Esterase NEGATIVE (NEGATIVE) Urine RBC 1-2 (0-2/HPF) Urine WBC 0-1 (0-5/HPF) Ur Epithelial Cells RARE (NONE-FEW) Urine Bacteria RARE (NEGATIVE) CSF Appearance CSF Color CSF WBC (0-5) /uL CSF RBC (0-0) /uL CSF Mononuclear Cells % CSF Polymorphonuclear % CSF Glucose 73.0 H (40-70) mg/dL CSF Total Protein 34 (15-45) mg/dL Urine Opiates Screen (NEGATIVE) Ur Oxycodone Screen (NEGATIVE) Urine Methadone Screen (NEGATIVE) Ur Barbiturates Screen (NEGATIVE) Ur Phencyclidine Scrn (NEGATIVE) Ur Amphetamine Screen (NEGATIVE) U Methamphetamines Scrn (NEGATIVE) U Benzodiazepines Scrn (NEGATIVE) U Cocaine Metab Screen (NEGATIVE) U Marijuana (THC) Screen (NEGATIVE) Ethyl Alcohol mg/dL Influenza Type A RNA (NEGATIVE) Influenza Type B RNA (NEGATIVE) SARS-CoV-2 RNA (MICHAEAL) (NEGATIVE) 09/26/20 Range/Units 18:23 WBC (4.0-11.0) K/uL RBC (4.50-5.90) M/uL Hgb (13.0-17.0) g/dL Hct (38.0-50.0) % MCV (80.0-98.0) fL MCH (27.0-32.0) pg MCHC (31.0-37.0) g/dL RDW Std Deviation (28.0-62.0) fl RDW Coeff of Marlys (11.0-15.0) % Plt Count (150-400) K/uL MPV (7.40-12.00) fL Neut % (Auto) (48.0-80.0) % Lymph % (Auto) (16.0-40.0) % [place] % (Auto) (0.0-15.0) % Eos % (Auto) (0.0-7.0) % Baso % (Auto) (0.0-1.5) % Neut # (Auto) (1.4-5.7) K/uL Lymph # (Auto) (0.6-2.4) K/uL [place] # (Auto) (0.0-0.8) K/uL Eos # (Auto) (0.0-0.7) K/uL Baso # (Auto) (0.0-0.1) K/uL Nucleated RBC % /100WBC Nucleated RBCs # K/uL Lactate (0.20-2.00) mmol/L Sodium (136-148) mmol/L Potassium (3.5-5.1) mmol/L Chloride (98-107) mmol/L Carbon Dioxide (21.0-32.0) mmol/L BUN (7.0-18.0) mg/dL Creatinine (0.8-1.3) mg/dL Est Cr Clr Drug Dosing mL/min Estimated GFR (MDRD) ml/min Glucose (74-106) mg/dL POC Glucose (60-110) mg/dL Calcium (8.5-10.1) mg/dL Total Bilirubin (0.2-1.0) mg/dL AST (15-37) IU/L ALT (14-63) IU/L Alkaline Phosphatase (46-116) U/L Creatine Kinase (26-308) U/L Troponin I (0.000-0.056) ng/mL Total Protein (6.4-8.2) g/dL Albumin (3.4-5.0) g/dL Globulin (2.6-4.0) g/dL Albumin/Globulin Ratio (0.9-1.6) Urine Color Urine Appearance Urine pH (5.0-8.0) Ur Specific [place] (1.001-1.035) Urine Protein (NEGATIVE) mg/dL Urine Glucose (UA) (NEGATIVE) mg/dL Urine Ketones (NEGATIVE) mg/dL Urine Occult Blood (NEGATIVE) Urine Nitrite (NEGATIVE) Urine Bilirubin (NEGATIVE) Urine Urobilinogen (<2.0) EU/dL Ur Leukocyte Esterase (NEGATIVE) Urine RBC (0-2/HPF) Urine WBC (0-5/HPF) Ur Epithelial Cells (NONE-FEW) Urine Bacteria (NEGATIVE) CSF Appearance CSF Color CSF WBC (0-5) /uL CSF RBC (0-0) /uL CSF Mononuclear Cells % CSF Polymorphonuclear % CSF Glucose (40-70) mg/dL CSF Total Protein (15-45) mg/dL Urine Opiates Screen NEGATIVE (NEGATIVE) Ur Oxycodone Screen NEGATIVE (NEGATIVE) Urine Methadone Screen NEGATIVE (NEGATIVE) Ur Barbiturates Screen NEGATIVE (NEGATIVE) Ur Phencyclidine Scrn NEGATIVE (NEGATIVE) Ur Amphetamine Screen POSITIVE (NEGATIVE) U Methamphetamines Scrn POSITIVE (NEGATIVE) U Benzodiazepines Scrn NEGATIVE (NEGATIVE) U Cocaine Metab Screen NEGATIVE (NEGATIVE) U Marijuana (THC) Screen NEGATIVE (NEGATIVE) Ethyl Alcohol mg/dL Influenza Type A RNA (NEGATIVE) Influenza Type B RNA (NEGATIVE) SARS-CoV-2 RNA (MICHAELA) (NEGATIVE) Result Diagrams: 09/27/20 06:27 09/27/20 06:27 Cesar Results Last 24 hrs: Microbiology 09/26/20 16:50 Gram Stain - Preliminary Cerebral Spinal Fluid Sepsis Event Note - Evaluation Sepsis Screening Result: No Definite Risk - Focused Exam Vital Signs: Vital Signs Temp Temp Pulse Resp BP Pulse Ox 09/26/20 20:25 36.8 C 104 H 18 114/73 94 L 09/26/20 19:45 40 C H 09/26/20 19:41 40 C H 09/26/20 19:01 101 H 20 134/77 97 09/26/20 18:30 97 19 119/71 95 09/26/20 18:01 100 21 H 107/56 L 95 09/26/20 17:13 38.9 C H 113 H 23 H 138/78 95 09/26/20 16:30 38.8 C H 09/26/20 16:00 38.9 C H 09/26/20 15:46 115 H 26 H 140/88 97 Problem List Initiated/Reviewed/Updated: Yes Orders Last 24hrs: Active Orders 24 hr Category Date Time Status Patient Status [ADT] Routine ADT 09/26/20 18:49 Active Accu Check [Blood Glucose Check, Bedside] [RC] ONETIME Care 09/26/20 16:09 Active Antiembolic Devices [RC] PER UNIT ROUTINE Care 09/26/20 23:23 Ordered EKG Documentation Completion [RC] STAT Care 09/26/20 15:53 Active Oxygen Therapy [RC] PRN Care 09/26/20 23:22 Ordered Up ad Diamante [RC] ASDIRECTED Care 09/26/20 23:22 Ordered VTE/DVT Education [RC] PER UNIT ROUTINE Care 09/26/20 23:22 Ordered Vital Signs [RC] Q4H Care 09/26/20 23:22 Ordered Regular Diet [DIET] Diet 09/26/20 Breakfast Ordered Abdomen Pelvis wo Cont [CT] Stat Exams 09/26/20 23:21 Ordered Chest wo Cont [CT] Stat Exams 09/26/20 23:20 Ordered CBC WITH AUTO DIFF [HEME] AM Lab 09/27/20 05:11 Ordered COMPREHENSIVE METABOLIC PN,CMP [CHEM] AM Lab 09/27/20 05:11 Ordered CORONAVIRUS COVID-19 MICHAELA [MOLEC] Routine Lab 09/27/20 08:00 Ordered CULTURE BLOOD [BC] Stat Lab 09/26/20 15:50 Received CULTURE BLOOD [BC] Stat Lab 09/26/20 15:50 Received CULTURE CSF + SMEAR [RM] Stat Lab 09/26/20 16:50 Results HIV12 AG/AB 4TH GEN [CHEM] Routine Lab 09/26/20 23:21 Ordered MONONUCLEOSIS SCREEN [CHEM] Routine Lab 09/26/20 23:21 Ordered PROCALCITONIN [REF] Stat Lab 09/26/20 15:50 Received STREP SCRN A RAPID W CULT CONF [RM] Routine Lab 09/26/20 23:21 Ordered Acetaminophen [TylenoL] Med 09/26/20 23:22 Ordered 650 mg PO Q4H PRN Enoxaparin [Lovenox] Med 09/26/20 23:30 Ordered 40 mg SUBCUT Q24H Ibuprofen [Motrin] Med 09/26/20 23:22 Ordered 400 mg PO Q6H PRN Ondansetron [Zofran] Med 09/26/20 23:22 Ordered 4 mg IVPUSH Q4H PRN Sodium Chloride 0.9% @ 125 MLS/HR (1000ml) Med 09/26/20 23:30 Ordered Sodium Chloride 0.9% [Normal Saline] 1,000 ml IV ASDIRECTED Sodium Chloride 0.9% [Normal Saline] 1,000 ml Med 09/26/20 23:30 Ordered IV BOLUS Sodium Chloride 0.9% [Saline Flush] Med 09/26/20 15:46 Active 10 ml FLUSH ASDIRECTED PRN Sodium Chloride 0.9% [Saline Flush] Med 09/26/20 15:46 Active 2.5 ml FLUSH ASDIRECTED PRN Blood Culture x2 Reflex Set [OM.PC] Stat Oth 09/26/20 15:48 Ordered Saline Lock Insert [OM.PC] Stat Oth 09/26/20 15:46 Ordered Sequential Compression Device [OM.PC] Per Unit Routine Oth 09/26/20 23:22 Ordered Resuscitation Status Routine Resus Stat 09/26/20 23:22 Ordered Medication Orders Acetaminophen (Tylenol) 650 mg PO Q4H PRN PRN Reason: Pain (Mild 1-3)/fever Enoxaparin Sodium (Lovenox) 40 mg SUBCUT Q24H REBEKAH Sodium Chloride (Normal Saline) 1,000 mls @ 999 mls/hr IV BOLUS REBEKAH Sodium Chloride (Normal Saline) 1,000 mls @ 125 mls/hr IV ASDIRECTED REBEKAH Ibuprofen (Motrin) 400 mg PO Q6H PRN PRN Reason: Pain (mild 1-3) Ondansetron HCl (Zofran) 4 mg IVPUSH Q4H PRN PRN Reason: Nausea Sodium Chloride (Saline Flush) 10 ml FLUSH ASDIRECTED PRN PRN Reason: Keep Vein Open Last Admin: 09/26/20 16:31 Dose: 10 ml Documented by: Admin: 09/26/20 16:01 Dose: 10 ml Documented by: JACINDA Sodium Chloride (Saline Flush) 2.5 ml FLUSH ASDIRECTED PRN PRN Reason: Keep Vein Open Last Admin: 09/26/20 16:31 Dose: 2.5 ml Documented by: SRI Assessment/Plan Comment:: 40 yo male admitted with fever, myalgias and lethargy. We will check imaging of chest abdomen and pelvis. No obvious source of infection but suspect viral co nsidering sick contacts at home. Patient was given Rocephin in the ED. We will retest for COVID tomorrow.
[2020-09-27] MEDS: Enoxaparin 40 MG/0.4 ML Syringe SUBCUT SCH ×2 (00:03→23:32)
--- NOTE | 2020-09-27 00:35 | CT ---
INDICATION: Fever COMPARISON: AP chest radiograph 09/26/2020 TECHNIQUE: Nonenhanced axial CT imaging through the chest. Sagittal and coronal reconstructions are provided. FINDINGS: There is airspace consolidation with air bronchograms involving the posterior left lower lobe, concerning for pneumonia. There is superimposed mild bibasilar atelectasis. The upper lobes are clear. Mild lymphadenopathy in the left pulmonary hilum is presumably reactive. The heart is nonenlarged. There is no pericardial effusion. There is normal caliber of the main pulmonary artery and thoracic aorta. The thoracic osseous structures are unremarkable. IMPRESSION: Posterior left lower lobe consolidation, compatible with pneumonia in the appropriate clinical setting. Please note that all CT scans at this facility use dose modulation, iterative reconstruction, and/or weight-based dosing when appropriate to reduce radiation dose to as low as reasonably achievable. Dictated by Qi Acosta MD @ Sep 27 2020 12:27AM Signed by Dr. Qi Acosta @ Sep 27 2020 12:35AM
--- NOTE | 2020-09-27 00:43 | CT ---
Indication: Fever Technique: Nonenhanced axial CT imaging through the abdomen and pelvis. Sagittal and coronal reconstructions are provided. Comparison: None Findings: There is unremarkable noncontrast appearance of the liver, gallbladder, spleen, and pancreas. No lymphadenopathy is demonstrated. The abdominal aorta is normal in caliber Nonspecific calcification is noted in the right adrenal gland. The left adrenal gland is unremarkable. There is a punctate nonobstructing left lower pole renal stone. The kidneys otherwise unremarkable. The stomach and duodenum are unremarkable. There is no small bowel wall thickening or abnormal distention. The appendix is noninflamed. There is no colonic wall thickening. There is no mesenteric edema or intraperitoneal free fluid. Anterior interbody fusion is noted at L5-S1. The osseous structures are otherwise unremarkable. Impression: 1. No acute process demonstrated in the abdomen or pelvis. 2. Incidental findings of nonspecific right adrenal calcification and punctate nonobstructing left lower pole renal stone. Please note that all CT scans at this facility use dose modulation, iterative reconstruction, and/or weight-based dosing when appropriate to reduce radiation dose to as low as reasonably achievable. Dictated by Qi Acosta MD @ Sep 27 2020 12:28AM Signed by Dr. Qi Acosta @ Sep 27 2020 12:42AM
[2020-09-27] MEDS ORDERED: Sodium Chloride 0.9% 1,000 ML IV ONE (01:20)
[2020-09-27] MEDS ORDERED: Sodium Chloride 0.9% 1,000 ML IV SCH ×2 (01:30)
[2020-09-27] MEDS: Sodium Chloride 0.9% 1,000 ML IV SCH ×3 (02:02→21:04)
[2020-09-27] MEDS: Ibuprofen 400 MG Tab PO PRN ×3 (02:04→21:57)
[2020-09-27] MEDS: Acetaminophen 325 MG Tab PO PRN ×3 (06:27→23:31)
[2020-09-27 07:11] LABS: BLOOD UREA NITROGEN,BUN 14 mg/dL (7.0-18.0); CARBON DIOXIDE,CO2 22.2 mmol/L (21.0-32.0); CHLORIDE,CL 100 mmol/L (98-107); GLUCOSE RANDOM 107 mg/dL (74-106); POTASSIUM,K 3.9 mmol/L (3.5-5.1); SODIUM,NA 134 mmol/L (136-148)
[2020-09-27] MEDS ORDERED: Fluconazole/Normal Saline 200 MG in Premix Bag 1 BAG IV ONE (10:51)
[2020-09-27] MEDS: Azithromycin 500 MG in Sodium Chloride 0.9% 250 ML IV SCH (11:40)
[2020-09-27] MEDS: Ondansetron 4 MG/2 ML SDV IVPUSH PRN (11:59)
--- NOTE | 2020-09-27 12:10 | PCM.PN ---
- General Info Date of Service: 09/27/20 Subjective Update: Patient is a 40-year-old gentleman, admitted for fever, body aches, lethargy and altered mental status. Extensive work-up was completed. There were no overnight events, patient states he is much improved this morning. Denied any fever, chills, body aches and was alert and oriented x4 however still somewhat lethargic. All questions and concerns were addressed at bedside. Functional Status: Reports: New Symptoms - Review of Systems General: Reports: Fatigue HEENT: Reports: No Symptoms Pulmonary: Reports: No Symptoms Cardiovascular: Reports: No Symptoms Gastrointestinal: Reports: No Symptoms Genitourinary: Reports: No Symptoms Musculoskeletal: Reports: No Symptoms Skin: Reports: No Symptoms Neurological: Reports: No Symptoms Psychiatric: Reports: No Symptoms - Patient Data Vitals - Most Recent: Last Vital Signs Temp 99.9 F 09/27/20 11:42 Pulse 108 H 09/27/20 11:42 Resp 20 09/27/20 11:42 BP 111/77 09/27/20 11:42 Pulse Ox 99 09/27/20 11:42 Weight - Most Recent: 200 lb 6.4 oz I&O - Last 24 Hours: Intake & Output 09/26/20 09/27/20 09/27/20 22:59 06:59 14:59 Intake Total 1498 Output Total 350 Balance 1148 Lab Results Last 24 Hours: Laboratory Results - last 24 hr 09/26/20 09/26/20 09/26/20 Range/Units 15:50 15:50 15:50 WBC 11.63 H (4.0-11.0) K/uL RBC 5.43 (4.50-5.90) M/uL Hgb 15.7 (13.0-17.0) g/dL Hct 47.9 (38.0-50.0) % MCV 88.2 (80.0-98.0) fL MCH 28.9 (27.0-32.0) pg MCHC 32.8 (31.0-37.0) g/dL RDW Std Deviation 46.2 (28.0-62.0) fl RDW Coeff of Marlys 14 (11.0-15.0) % Plt Count 369 (150-400) K/uL MPV 8.70 (7.40-12.00) fL Neut % (Auto) 84.6 H (48.0-80.0) % Lymph % (Auto) 6.2 L (16.0-40.0) % [place] % (Auto) 8.9 (0.0-15.0) % Eos % (Auto) 0.1 (0.0-7.0) % Baso % (Auto) 0.2 (0.0-1.5) % Neut # (Auto) 9.9 H (1.4-5.7) K/uL Lymph # (Auto) 0.7 (0.6-2.4) K/uL [place] # (Auto) 1.0 H (0.0-0.8) K/uL Eos # (Auto) 0.0 (0.0-0.7) K/uL Baso # (Auto) 0.0 (0.0-0.1) K/uL Nucleated RBC % 0.0 /100WBC Nucleated RBCs # 0 K/uL Lactate 1.3 (0.20-2.00) mmol/L Sodium 136 (136-148) mmol/L Potassium 4.3 (3.5-5.1) mmol/L Chloride 99 (98-107) mmol/L Carbon Dioxide 26.4 (21.0-32.0) mmol/L BUN 13 (7.0-18.0) mg/dL Creatinine 1.1 (0.8-1.3) mg/dL Est Cr Clr Drug Dosing 97.00 mL/min Estimated GFR (MDRD) > 60.0 ml/min Glucose 107 H (74-106) mg/dL POC Glucose (60-110) mg/dL Calcium 9.6 (8.5-10.1) mg/dL Total Bilirubin 0.4 (0.2-1.0) mg/dL AST 33 (15-37) IU/L ALT 37 (14-63) IU/L Alkaline Phosphatase 99 (46-116) U/L Creatine Kinase 54 (26-308) U/L Troponin I (0.000-0.056) ng/mL Total Protein 7.6 (6.4-8.2) g/dL Albumin 3.5 (3.4-5.0) g/dL Globulin 4.1 H (2.6-4.0) g/dL Albumin/Globulin Ratio 0.9 (0.9-1.6) Urine Color Urine Appearance Urine pH (5.0-8.0) Ur Specific [place] (1.001-1.035) Urine Protein (NEGATIVE) mg/dL Urine Glucose (UA) (NEGATIVE) mg/dL Urine Ketones (NEGATIVE) mg/dL Urine Occult Blood (NEGATIVE) Urine Nitrite (NEGATIVE) Urine Bilirubin (NEGATIVE) Urine Urobilinogen (<2.0) EU/dL Ur Leukocyte Esterase (NEGATIVE) Urine RBC (0-2/HPF) Urine WBC (0-5/HPF) Ur Epithelial Cells (NONE-FEW) Urine Bacteria (NEGATIVE) CSF Appearance CSF Color CSF WBC (0-5) /uL CSF RBC (0-0) /uL CSF Mononuclear Cells % CSF Polymorphonuclear % CSF Glucose (40-70) mg/dL CSF Total Protein (15-45) mg/dL Urine Opiates Screen (NEGATIVE) Ur Oxycodone Screen (NEGATIVE) Urine Methadone Screen (NEGATIVE) Ur Barbiturates Screen (NEGATIVE) Ur Phencyclidine Scrn (NEGATIVE) Ur Amphetamine Screen (NEGATIVE) U Methamphetamines Scrn (NEGATIVE) U Benzodiazepines Scrn (NEGATIVE) U Cocaine Metab Screen (NEGATIVE) U Marijuana (THC) Screen (NEGATIVE) Ethyl Alcohol <3 mg/dL Monoscreen (NEG) HIV 1&2 Ag/Ab, 4th Gen (<1.0) INDEX Influenza Type A RNA (NEGATIVE) Influenza Type B RNA (NEGATIVE) SARS-CoV-2 RNA (MICHAELA) (NEGATIVE) 09/26/20 09/26/20 09/26/20 Range/Units 15:50 15:50 15:50 WBC (4.0-11.0) K/uL RBC (4.50-5.90) M/uL Hgb (13.0-17.0) g/dL Hct (38.0-50.0) % MCV (80.0-98.0) fL MCH (27.0-32.0) pg MCHC (31.0-37.0) g/dL RDW Std Deviation (28.0-62.0) fl RDW Coeff of Marlys (11.0-15.0) % Plt Count (150-400) K/uL MPV (7.40-12.00) fL Neut % (Auto) (48.0-80.0) % Lymph % (Auto) (16.0-40.0) % [place] % (Auto) (0.0-15.0) % Eos % (Auto) (0.0-7.0) % Baso % (Auto) (0.0-1.5) % Neut # (Auto) (1.4-5.7) K/uL Lymph # (Auto) (0.6-2.4) K/uL [place] # (Auto) (0.0-0.8) K/uL Eos # (Auto) (0.0-0.7) K/uL Baso # (Auto) (0.0-0.1) K/uL Nucleated RBC % /100WBC Nucleated RBCs # K/uL Lactate (0.20-2.00) mmol/L Sodium (136-148) mmol/L Potassium (3.5-5.1) mmol/L Chloride (98-107) mmol/L Carbon Dioxide (21.0-32.0) mmol/L BUN (7.0-18.0) mg/dL Creatinine (0.8-1.3) mg/dL Est Cr Clr Drug Dosing mL/min Estimated GFR (MDRD) ml/min Glucose (74-106) mg/dL POC Glucose (60-110) mg/dL Calcium (8.5-10.1) mg/dL Total Bilirubin (0.2-1.0) mg/dL AST (15-37) IU/L ALT (14-63) IU/L Alkaline Phosphatase (46-116) U/L Creatine Kinase (26-308) U/L Troponin I < 0.050 (0.000-0.056) ng/mL Total Protein (6.4-8.2) g/dL Albumin (3.4-5.0) g/dL Globulin (2.6-4.0) g/dL Albumin/Globulin Ratio (0.9-1.6) Urine Color Urine Appearance Urine pH (5.0-8.0) Ur Specific [place] (1.001-1.035) Urine Protein (NEGATIVE) mg/dL Urine Glucose (UA) (NEGATIVE) mg/dL Urine Ketones (NEGATIVE) mg/dL Urine Occult Blood (NEGATIVE) Urine Nitrite (NEGATIVE) Urine Bilirubin (NEGATIVE) Urine Urobilinogen (<2.0) EU/dL Ur Leukocyte Esterase (NEGATIVE) Urine RBC (0-2/HPF) Urine WBC (0-5/HPF) Ur Epithelial Cells (NONE-FEW) Urine Bacteria (NEGATIVE) CSF Appearance CSF Color CSF WBC (0-5) /uL CSF RBC (0-0) /uL CSF Mononuclear Cells % CSF Polymorphonuclear % CSF Glucose (40-70) mg/dL CSF Total Protein (15-45) mg/dL Urine Opiates Screen (NEGATIVE) Ur Oxycodone Screen (NEGATIVE) Urine Methadone Screen (NEGATIVE) Ur Barbiturates Screen (NEGATIVE) Ur Phencyclidine Scrn (NEGATIVE) Ur Amphetamine Screen (NEGATIVE) U Methamphetamines Scrn (NEGATIVE) U Benzodiazepines Scrn (NEGATIVE) U Cocaine Metab Screen (NEGATIVE) U Marijuana (THC) Screen (NEGATIVE) Ethyl Alcohol mg/dL Monoscreen NEGATIVE (NEG) HIV 1&2 Ag/Ab, 4th Gen 0.1 (<1.0) INDEX Influenza Type A RNA (NEGATIVE) Influenza Type B RNA (NEGATIVE) SARS-CoV-2 RNA (MICHAELA) (NEGATIVE) 09/26/20 09/26/20 09/26/20 Range/Units 15:55 16:50 16:50 WBC (4.0-11.0) K/uL RBC (4.50-5.90) M/uL Hgb (13.0-17.0) g/dL Hct (38.0-50.0) % MCV (80.0-98.0) fL MCH (27.0-32.0) pg MCHC (31.0-37.0) g/dL RDW Std Deviation (28.0-62.0) fl RDW Coeff of Marlys (11.0-15.0) % Plt Count (150-400) K/uL MPV (7.40-12.00) fL Neut % (Auto) (48.0-80.0) % Lymph % (Auto) (16.0-40.0) % [place] % (Auto) (0.0-15.0) % Eos % (Auto) (0.0-7.0) % Baso % (Auto) (0.0-1.5) % Neut # (Auto) (1.4-5.7) K/uL Lymph # (Auto) (0.6-2.4) K/uL [place] # (Auto) (0.0-0.8) K/uL Eos # (Auto) (0.0-0.7) K/uL Baso # (Auto) (0.0-0.1) K/uL Nucleated RBC % /100WBC Nucleated RBCs # K/uL Lactate (0.20-2.00) mmol/L Sodium (136-148) mmol/L Potassium (3.5-5.1) mmol/L Chloride (98-107) mmol/L Carbon Dioxide (21.0-32.0) mmol/L BUN (7.0-18.0) mg/dL Creatinine (0.8-1.3) mg/dL Est Cr Clr Drug Dosing mL/min Estimated GFR (MDRD) ml/min Glucose (74-106) mg/dL POC Glucose (60-110) mg/dL Calcium (8.5-10.1) mg/dL Total Bilirubin (0.2-1.0) mg/dL AST (15-37) IU/L ALT (14-63) IU/L Alkaline Phosphatase (46-116) U/L Creatine Kinase (26-308) U/L Troponin I (0.000-0.056) ng/mL Total Protein (6.4-8.2) g/dL Albumin (3.4-5.0) g/dL Globulin (2.6-4.0) g/dL Albumin/Globulin Ratio (0.9-1.6) Urine Color Urine Appearance Urine pH (5.0-8.0) Ur Specific [place] (1.001-1.035) Urine Protein (NEGATIVE) mg/dL Urine Glucose (UA) (NEGATIVE) mg/dL Urine Ketones (NEGATIVE) mg/dL Urine Occult Blood (NEGATIVE) Urine Nitrite (NEGATIVE) Urine Bilirubin (NEGATIVE) Urine Urobilinogen (<2.0) EU/dL Ur Leukocyte Esterase (NEGATIVE) Urine RBC (0-2/HPF) Urine WBC (0-5/HPF) Ur Epithelial Cells (NONE-FEW) Urine Bacteria (NEGATIVE) CSF Appearance CLEAR CSF Color COLORLESS CSF WBC 1 (0-5) /uL CSF RBC 0 (0-0) /uL CSF Mononuclear Cells 0.0 % CSF Polymorphonuclear 100.0 % CSF Glucose 73.0 H (40-70) mg/dL CSF Total Protein 34 (15-45) mg/dL Urine Opiates Screen (NEGATIVE) Ur Oxycodone Screen (NEGATIVE) Urine Methadone Screen (NEGATIVE) Ur Barbiturates Screen (NEGATIVE) Ur Phencyclidine Scrn (NEGATIVE) Ur Amphetamine Screen (NEGATIVE) U Methamphetamines Scrn (NEGATIVE) U Benzodiazepines Scrn (NEGATIVE) U Cocaine Metab Screen (NEGATIVE) U Marijuana (THC) Screen (NEGATIVE) Ethyl Alcohol mg/dL Monoscreen (NEG) HIV 1&2 Ag/Ab, 4th Gen (<1.0) INDEX Influenza Type A RNA NEGATIVE (NEGATIVE) Influenza Type B RNA NEGATIVE (NEGATIVE) SARS-CoV-2 RNA (MICHAELA) NEGATIVE (NEGATIVE) 09/26/20 09/26/20 09/26/20 Range/Units 16:58 18:23 18:23 WBC (4.0-11.0) K/uL RBC (4.50-5.90) M/uL Hgb (13.0-17.0) g/dL Hct (38.0-50.0) % MCV (80.0-98.0) fL MCH (27.0-32.0) pg MCHC (31.0-37.0) g/dL RDW Std Deviation (28.0-62.0) fl RDW Coeff of Marlys (11.0-15.0) % Plt Count (150-400) K/uL MPV (7.40-12.00) fL Neut % (Auto) (48.0-80.0) % Lymph % (Auto) (16.0-40.0) % [place] % (Auto) (0.0-15.0) % Eos % (Auto) (0.0-7.0) % Baso % (Auto) (0.0-1.5) % Neut # (Auto) (1.4-5.7) K/uL Lymph # (Auto) (0.6-2.4) K/uL [place] # (Auto) (0.0-0.8) K/uL Eos # (Auto) (0.0-0.7) K/uL Baso # (Auto) (0.0-0.1) K/uL Nucleated RBC % /100WBC Nucleated RBCs # K/uL Lactate (0.20-2.00) mmol/L Sodium (136-148) mmol/L Potassium (3.5-5.1) mmol/L Chloride (98-107) mmol/L Carbon Dioxide (21.0-32.0) mmol/L BUN (7.0-18.0) mg/dL Creatinine (0.8-1.3) mg/dL Est Cr Clr Drug Dosing mL/min Estimated GFR (MDRD) ml/min Glucose (74-106) mg/dL POC Glucose 113 H (60-110) mg/dL Calcium (8.5-10.1) mg/dL Total Bilirubin (0.2-1.0) mg/dL AST (15-37) IU/L ALT (14-63) IU/L Alkaline Phosphatase (46-116) U/L Creatine Kinase (26-308) U/L Troponin I (0.000-0.056) ng/mL Total Protein (6.4-8.2) g/dL Albumin (3.4-5.0) g/dL Globulin (2.6-4.0) g/dL Albumin/Globulin Ratio (0.9-1.6) Urine Color YELLOW Urine Appearance CLEAR Urine pH 7.0 (5.0-8.0) Ur Specific [place] 1.020 (1.001-1.035) Urine Protein NEGATIVE (NEGATIVE) mg/dL Urine Glucose (UA) NEGATIVE (NEGATIVE) mg/dL Urine Ketones NEGATIVE (NEGATIVE) mg/dL Urine Occult Blood TRACE-INTACT H (NEGATIVE) Urine Nitrite NEGATIVE (NEGATIVE) Urine Bilirubin NEGATIVE (NEGATIVE) Urine Urobilinogen 0.2 (<2.0) EU/dL Ur Leukocyte Esterase NEGATIVE (NEGATIVE) Urine RBC 1-2 (0-2/HPF) Urine WBC 0-1 (0-5/HPF) Ur Epithelial Cells RARE (NONE-FEW) Urine Bacteria RARE (NEGATIVE) CSF Appearance CSF Color CSF WBC (0-5) /uL CSF RBC (0-0) /uL CSF Mononuclear Cells % CSF Polymorphonuclear % CSF Glucose (40-70) mg/dL CSF Total Protein (15-45) mg/dL Urine Opiates Screen NEGATIVE (NEGATIVE) Ur Oxycodone Screen NEGATIVE (NEGATIVE) Urine Methadone Screen NEGATIVE (NEGATIVE) Ur Barbiturates Screen NEGATIVE (NEGATIVE) Ur Phencyclidine Scrn NEGATIVE (NEGATIVE) Ur Amphetamine Screen POSITIVE (NEGATIVE) U Methamphetamines Scrn POSITIVE (NEGATIVE) U Benzodiazepines Scrn NEGATIVE (NEGATIVE) U Cocaine Metab Screen NEGATIVE (NEGATIVE) U Marijuana (THC) Screen NEGATIVE (NEGATIVE) Ethyl Alcohol mg/dL Monoscreen (NEG) HIV 1&2 Ag/Ab, 4th Gen (<1.0) INDEX Influenza Type A RNA (NEGATIVE) Influenza Type B RNA (NEGATIVE) SARS-CoV-2 RNA (MICHAELA) (NEGATIVE) 09/27/20 09/27/20 09/27/20 Range/Units 06:27 06:27 08:50 WBC 10.97 (4.0-11.0) K/uL RBC 4.88 (4.50-5.90) M/uL Hgb 13.8 (13.0-17.0) g/dL Hct 42.3 (38.0-50.0) % MCV 86.7 (80.0-98.0) fL MCH 28.3 (27.0-32.0) pg MCHC 32.6 (31.0-37.0) g/dL RDW Std Deviation 45.2 (28.0-62.0) fl RDW Coeff of Marlys 14 (11.0-15.0) % Plt Count 322 (150-400) K/uL MPV 8.90 (7.40-12.00) fL Neut % (Auto) 80.6 H (48.0-80.0) % Lymph % (Auto) 9.1 L (16.0-40.0) % [place] % (Auto) 10.1 (0.0-15.0) % Eos % (Auto) 0.0 (0.0-7.0) % Baso % (Auto) 0.2 (0.0-1.5) % Neut # (Auto) 8.8 H (1.4-5.7) K/uL Lymph # (Auto) 1.0 (0.6-2.4) K/uL [place] # (Auto) 1.1 H (0.0-0.8) K/uL Eos # (Auto) 0.0 (0.0-0.7) K/uL Baso # (Auto) 0.0 (0.0-0.1) K/uL Nucleated RBC % 0.0 /100WBC Nucleated RBCs # 0 K/uL Lactate (0.20-2.00) mmol/L Sodium 134 L (136-148) mmol/L Potassium 3.9 (3.5-5.1) mmol/L Chloride 100 (98-107) mmol/L Carbon Dioxide 22.2 (21.0-32.0) mmol/L BUN 14 (7.0-18.0) mg/dL Creatinine 1.0 (0.8-1.3) mg/dL Est Cr Clr Drug Dosing 113.03 mL/min Estimated GFR (MDRD) > 60.0 ml/min Glucose 107 H (74-106) mg/dL POC Glucose (60-110) mg/dL Calcium 8.7 (8.5-10.1) mg/dL Total Bilirubin 0.4 (0.2-1.0) mg/dL AST 35 (15-37) IU/L ALT 42 (14-63) IU/L Alkaline Phosphatase 87 (46-116) U/L Creatine Kinase (26-308) U/L Troponin I (0.000-0.056) ng/mL Total Protein 6.5 (6.4-8.2) g/dL Albumin 2.8 L (3.4-5.0) g/dL Globulin 3.7 (2.6-4.0) g/dL Albumin/Globulin Ratio 0.8 L (0.9-1.6) Urine Color Urine Appearance Urine pH (5.0-8.0) Ur Specific [place] (1.001-1.035) Urine Protein (NEGATIVE) mg/dL Urine Glucose (UA) (NEGATIVE) mg/dL Urine Ketones (NEGATIVE) mg/dL Urine Occult Blood (NEGATIVE) Urine Nitrite (NEGATIVE) Urine Bilirubin (NEGATIVE) Urine Urobilinogen (<2.0) EU/dL Ur Leukocyte Esterase (NEGATIVE) Urine RBC (0-2/HPF) Urine WBC (0-5/HPF) Ur Epithelial Cells (NONE-FEW) Urine Bacteria (NEGATIVE) CSF Appearance CSF Color CSF WBC (0-5) /uL CSF RBC (0-0) /uL CSF Mononuclear Cells % CSF Polymorphonuclear % CSF Glucose (40-70) mg/dL CSF Total Protein (15-45) mg/dL Urine Opiates Screen (NEGATIVE) Ur Oxycodone Screen (NEGATIVE) Urine Methadone Screen (NEGATIVE) Ur Barbiturates Screen (NEGATIVE) Ur Phencyclidine Scrn (NEGATIVE) Ur Amphetamine Screen (NEGATIVE) U Methamphetamines Scrn (NEGATIVE) U Benzodiazepines Scrn (NEGATIVE) U Cocaine Metab Screen (NEGATIVE) U Marijuana (THC) Screen (NEGATIVE) Ethyl Alcohol mg/dL Monoscreen (NEG) HIV 1&2 Ag/Ab, 4th Gen (<1.0) INDEX Influenza Type A RNA (NEGATIVE) Influenza Type B RNA (NEGATIVE) SARS-CoV-2 RNA (MICHAELA) NEGATIVE (NEGATIVE) Cesar Results Last 24 Hours: Microbiology 09/26/20 16:50 Gram Stain - Final Cerebral Spinal Fluid CSF Culture - Preliminary NO GROWTH AFTER 1 DAY Med Orders - Current: Current Medications Acetaminophen (Tylenol) 650 mg PO Q4H PRN PRN Reason: Pain (Mild 1-3)/fever Last Admin: 09/27/20 06:27 Dose: 650 mg Documented by: Enoxaparin Sodium (Lovenox) 40 mg SUBCUT Q24H REBEKAH Last Admin: 09/27/20 00:03 Dose: 40 mg Documented by: Sodium Chloride (Normal Saline) 1,000 mls @ 125 mls/hr IV ASDIRECTED REBEKAH Last Admin: 09/27/20 10:56 Dose: 125 mls/hr Documented by: Azithromycin 500 mg/ Sodium (Chloride) 250 mls @ 250 mls/hr IV DAILY REBEKAH Last Admin: 09/27/20 11:40 Dose: 250 mls/hr Documented by: Ceftriaxone Sodium/Dextrose 1 (gm/ Premix) 50 mls @ 100 mls/hr IV Q24H REBEKAH Ibuprofen (Motrin) 400 mg PO Q6H PRN PRN Reason: Pain (mild 1-3) Last Admin: 09/27/20 02:04 Dose: 400 mg Documented by: Ondansetron HCl (Zofran) 4 mg IVPUSH Q4H PRN PRN Reason: Nausea Last Admin: 09/27/20 11:59 Dose: 4 mg Documented by: Sodium Chloride (Saline Flush) 10 ml FLUSH ASDIRECTED PRN PRN Reason: Keep Vein Open Last Admin: 09/26/20 16:31 Dose: 10 ml Documented by: Sodium Chloride (Saline Flush) 2.5 ml FLUSH ASDIRECTED PRN PRN Reason: Keep Vein Open Last Admin: 09/26/20 16:31 Dose: 2.5 ml Documented by: Discontinued Medications Acetaminophen (Tylenol) 650 mg RECTAL NOW ONE Stop: 09/26/20 15:50 Last Admin: 09/26/20 16:00 Dose: 650 mg Documented by: Fentanyl (Fentanyl) 50 mcg IVPUSH ONETIME ONE Stop: 09/26/20 16:30 Last Admin: 09/26/20 16:44 Dose: 50 mcg Documented by: Ceftriaxone Sodium/Dextrose 2 (gm/ Premix) 50 mls @ 100 mls/hr IV ONETIME ONE Stop: 09/26/20 16:43 Last Admin: 09/26/20 16:32 Dose: 100 mls/hr Documented by: Lactated Ringer's (Ringers, Lactated) 1,000 mls @ 999 mls/hr IV .BOLUS ONE Stop: 09/26/20 17:22 Last Admin: 09/26/20 16:32 Dose: 999 mls/hr Documented by: Sodium Chloride (Normal Saline) 1,000 mls @ 999 mls/hr IV BOLUS REBEKAH Sodium Chloride (Normal Saline) 1,000 mls @ 125 mls/hr IV ASDIRECTED REBEKAH Sodium Chloride (Normal Saline) 1,000 mls @ 999 mls/hr IV BOLUS REBEKAH Sodium Chloride (Normal Saline) 1,000 mls @ 125 mls/hr IV ASDIRECTED REBEKAH Sodium Chloride (Normal Saline) 1,000 mls @ 999 mls/hr IV .BOLUS ONE Stop: 09/27/20 02:20 Last Admin: 09/27/20 01:24 Dose: 999 mls/hr Documented by: Ibuprofen (Motrin) 600 mg PO ONETIME ONE Stop: 09/26/20 19:42 Last Admin: 09/26/20 19:45 Dose: 600 mg Documented by: Lorazepam (Ativan) 2 mg IVPUSH ONETIME ONE Stop: 09/26/20 15:56 Last Admin: 09/26/20 16:00 Dose: 2 mg Documented by: - Exam Quality Assessment: DVT Prophylaxis General: Alert, Oriented, Cooperative, No Acute Distress HEENT: Pupils Equal, Pupils Reactive, EOMI, Mucous Membr. Moist/[place] Neck: Supple, No JVD Lungs: Clear to Auscultation, Normal Respiratory Effort Cardiovascular: Regular Rate, Regular Rhythm GI/Abdominal Exam: Normal Bowel Sounds, Soft, Non-Tender, No Organomegaly, No Distention, No Mass Sepsis Event Note - Evaluation Sepsis Screening Result: No Definite Risk - Focused Exam Vital Signs: Vital Signs Temp Pulse Resp BP Pulse Ox 09/27/20 11:42 99.9 F 108 H 20 111/77 99 09/27/20 07:46 98.0 F 103 H 18 101/65 94 L 09/27/20 04:11 99.7 F 95 16 113/72 94 L - Problem List & Annotations (1) Altered mental state SNOMED Code(s): 951098671 Code(s): R41.82 - ALTERED MENTAL STATUS, UNSPECIFIED Status: Acute Current Visit: Yes (2) Fever SNOMED Code(s): 697399682 Code(s): R50.9 - FEVER, UNSPECIFIED Status: Acute Current Visit: Yes - Problem List Review Problem List Initiated/Reviewed/Updated: Yes - Plan Plan:: 40 yo male admitted with fever, myalgias and lethargy and altered mental status. There is no obvious source of infection found despite extensive testing/work- up. 1. Possible pneumonia: Afebrile, 10.97 white blood cell count, no significant source of infection found Will start ceftriaxone and Zosyn for possible community-acquired pneumonia seen as left lower lobe consolidation on chest x-ray. Disposition: potential d/c tomorrow
[2020-09-27] MEDS ORDERED: cefTRIAXone 1 GM in Premix Bag 1 BAG IV SCH (15:00)
[2020-09-28] MEDS: Sodium Chloride 0.9% 1,000 ML IV SCH (05:44)
[2020-09-28 06:23] LABS: BLOOD UREA NITROGEN,BUN 13 mg/dL (7.0-18.0); CARBON DIOXIDE,CO2 23.4 mmol/L (21.0-32.0); CHLORIDE,CL 106 mmol/L (98-107); GLUCOSE RANDOM 98 mg/dL (74-106); SODIUM,NA 139 mmol/L (136-148)
[2020-09-28] MEDS: Azithromycin 500 MG in Sodium Chloride 0.9% 250 ML IV SCH (09:49)
[2020-09-28] MEDS ORDERED: Pantoprazole 40 MG in Sodium Chloride 0.9% 10 ML IV ONE (11:15)
[2020-09-28] MEDS: Ondansetron 4 MG/2 ML SDV IVPUSH PRN (11:18)
[2020-09-28 12:05] VITALS: BP 100/57; PULSE 99
--- NOTE | 2020-09-28 14:25 | PCM.DCSUM1 ---
<Mckenzie Ceballos - Last Filed: 09/28/20 14:25> Discharge Summary - Hospital Course Brief History: 40 yo male with pmh of PTSD, asthma who presents to the ED with complaints of fever and altered mental status. Patient has had fevers, muscle aches and headaches for three days. reports same symptoms. Today he became lethargic and his mentation slowed prompting his to bring him to the ED. In the ED he was noted ot have a fever, CSF analysis was normal. CXR clear. Diagnosis: Stroke: No - Discharge Data Discharge Date: 09/28/20 Discharge Disposition: Home, Self-Care 01 Condition: Good - Referral to Home Health Primary Care Physician: Flavia Delatorre MD - Discharge Diagnosis/Problem(s) (1) Altered mental state SNOMED Code(s): 820277515 ICD Code: R41.82 - ALTERED MENTAL STATUS, UNSPECIFIED Status: Acute (2) Fever SNOMED Code(s): 994452860 ICD Code: R50.9 - FEVER, UNSPECIFIED Status: Acute - Patient Summary/Data Hospital Course: Patient was admitted with altered mental status, lethargy, body aches/myalgia, and fever. Extensive work-up revealed possible underlying community acquired versus viral infection. Was started on empiric antibiotics, fever resolved, white blood cell count improved, patient's overall symptoms improved. Patient is alert and oriented x4, stating he feels much improved and ready to go home. Will discharge today with a prescription for Levaquin antibiotics for an additional 5 days. Encourage patient to follow-up with his PCP within the week. - Patient Instructions Diet: Usual Diet as Tolerated Activity: As Tolerated Showering/Bathing: May Shower Notify Provider of: Fever, Increased Pain, Nausea and/or Vomiting Other/Special Instructions: Please return to hospital in the event your symptoms worsen, you develop confusion, fever, body aches. - Discharge Plan *PRESCRIPTION DRUG MONITORING PROGRAM REVIEWED*: Not Applicable *COPY OF PRESCRIPTION DRUG MONITORING REPORT IN PATIENT PROSPER: Not Applicable Prescriptions/Med Rec: levoFLOXacin [Levaquin] 750 mg PO Q24H 5 Days #5 tablet Home Medications: Home Meds Methylphenidate HCl [Methylphenidate ER] 36 mg PO DAILY 09/16/17 [History] Prazosin HCl [Prazosin] 2 mg PO BEDTIME 09/16/17 [History] Sertraline HCl 100 mg PO DAILY 09/16/17 [History] levoFLOXacin [Levaquin] 750 mg PO Q24H 5 Days #5 tablet 09/28/20 [Rx] Oxygen Therapy Mode: Room Air Patient Handouts: Fever, Adult, Confusion, Levofloxacin tablets Referrals: Christine Esteves [employer]EL[employer] [Nurse Practitioner] - 10/04/20 8:30 am (Please arrive 15 minutes early wearing a facemask and bring insurance cards and a photo ID.) - Discharge Summary/Plan Comment DC Time >30 min.: No - Patient Data Vitals - Most Recent: Last Vital Signs Temp 97.7 F 09/28/20 12:00 Pulse 99 09/28/20 12:00 Resp 18 09/28/20 12:00 BP 100/57 L 09/28/20 12:00 Pulse Ox 94 L 09/28/20 12:00 Weight - Most Recent: 90.9 kg I&O - Last 24 hours: Intake & Output 09/27/20 09/28/20 09/28/20 22:59 06:59 14:59 Intake Total 400 4057 Output Total 700 925 Balance -300 3132 Lab Results - Last 24 hrs: Laboratory Results - last 24 hr 09/26/20 09/28/20 09/28/20 Range/Units 15:50 05:20 05:20 WBC 7.12 (4.0-11.0) K/uL RBC 4.84 (4.50-5.90) M/uL Hgb 14.1 (13.0-17.0) g/dL Hct 42.1 (38.0-50.0) % MCV 87.0 (80.0-98.0) fL MCH 29.1 (27.0-32.0) pg MCHC 33.5 (31.0-37.0) g/dL RDW Std Deviation 46.0 (28.0-62.0) fl RDW Coeff of Marlsy 14 (11.0-15.0) % Plt Count 319 (150-400) K/uL MPV 9.50 (7.40-12.00) fL Add Manual Diff YES Neutrophils % (Manual) 48 (48.0-80.0) % Band Neutrophils % 15 % Lymphocytes % (Manual) 26 (16.0-40.0) % Monocytes % (Manual) 11 (0.0-15.0) % Nucleated RBC % 0.0 /100WBC Absolute Seg Neuts 3.4 (1.4-5.7) Band Neutrophils # 1.1 Lymphocytes # (Manual) 1.9 (0.6-2.4) Monocytes # (Manual) 0.8 (0.0-0.8) Nucleated RBCs # 0 K/uL Sodium 139 (136-148) mmol/L Potassium 4.0 (3.5-5.1) mmol/L Chloride 106 (98-107) mmol/L Carbon Dioxide 23.4 (21.0-32.0) mmol/L BUN 13 (7.0-18.0) mg/dL Creatinine 1.0 (0.8-1.3) mg/dL Est Cr Clr Drug Dosing 113.03 mL/min Estimated GFR (MDRD) > 60.0 ml/min Glucose 98 (74-106) mg/dL Calcium 8.8 (8.5-10.1) mg/dL Total Bilirubin 0.2 (0.2-1.0) mg/dL AST 46 H (15-37) IU/L ALT 60 (14-63) IU/L Alkaline Phosphatase 89 (46-116) U/L Total Protein 6.1 L (6.4-8.2) g/dL Albumin 2.5 L (3.4-5.0) g/dL Globulin 3.6 (2.6-4.0) g/dL Albumin/Globulin Ratio 0.7 L (0.9-1.6) Procalcitonin 0.19 H ng/mL FRAN Results - Last 24 hrs: Microbiology 09/26/20 16:50 Gram Stain - Final Cerebral Spinal Fluid CSF Culture - Preliminary NO GROWTH AFTER 2 DAYS 09/26/20 15:50 Aerobic Blood Culture - Preliminary Blood - Venous NO GROWTH AFTER 1 DAY Anaerobic Blood Culture - Preliminary NO GROWTH AFTER 1 DAY 09/26/20 15:50 Aerobic Blood Culture - Preliminary Blood - Venous - Lab Draw NO GROWTH AFTER 1 DAY Anaerobic Blood Culture - Preliminary NO GROWTH AFTER 1 DAY Med Orders - Current: Current Medications Acetaminophen (Tylenol) 650 mg PO Q4H PRN PRN Reason: Pain (Mild 1-3)/fever Last Admin: 09/27/20 23:31 Dose: 650 mg Documented by: Enoxaparin Sodium (Lovenox) 40 mg SUBCUT Q24H [facility] Last Admin: 09/27/20 23:32 Dose: 40 mg Documented by: Sodium Chloride (Normal Saline) 1,000 mls @ 125 mls/hr IV ASDIRECTED [facility] Last Admin: 09/28/20 05:44 Dose: 125 mls/hr Documented by: Azithromycin 500 mg/ Sodium (Chloride) 250 mls @ 250 mls/hr IV DAILY [facility] Last Admin: 09/28/20 09:49 Dose: 250 mls/hr Documented by: Ceftriaxone Sodium/Dextrose 1 (gm/ Premix) 50 mls @ 100 mls/hr IV Q24H [facility] Last Admin: 09/27/20 15:09 Dose: 100 mls/hr Documented by: Ibuprofen (Motrin) 400 mg PO Q6H PRN PRN Reason: Pain (mild 1-3) Last Admin: 09/27/20 21:57 Dose: 400 mg Documented by: Levofloxacin (Levaquin) 750 mg PO Q24H [facility] Stop: 10/03/20 14:31 Ondansetron HCl (Zofran) 4 mg IVPUSH Q4H PRN PRN Reason: Nausea Last Admin: 09/28/20 11:18 Dose: 4 mg Documented by: Sodium Chloride (Saline Flush) 10 ml FLUSH ASDIRECTED PRN PRN Reason: Keep Vein Open Last Admin: 09/26/20 16:31 Dose: 10 ml Documented by: Sodium Chloride (Saline Flush) 2.5 ml FLUSH ASDIRECTED PRN PRN Reason: Keep Vein Open Last Admin: 09/26/20 16:31 Dose: 2.5 ml Documented by: Discontinued Medications Acetaminophen (Tylenol) 650 mg RECTAL NOW ONE Stop: 09/26/20 15:50 Last Admin: 09/26/20 16:00 Dose: 650 mg Documented by: Fentanyl (Fentanyl) 50 mcg IVPUSH ONETIME ONE Stop: 09/26/20 16:30 Last Admin: 09/26/20 16:44 Dose: 50 mcg Documented by: Ceftriaxone Sodium/Dextrose 2 (gm/ Premix) 50 mls @ 100 mls/hr IV ONETIME ONE Stop: 09/26/20 16:43 Last Admin: 09/26/20 16:32 Dose: 100 mls/hr Documented by: Lactated Ringer's (Ringers, Lactated) 1,000 mls @ 999 mls/hr IV .BOLUS ONE Stop: 09/26/20 17:22 Last Admin: 09/26/20 16:32 Dose: 999 mls/hr Documented by: Sodium Chloride (Normal Saline) 1,000 mls @ 999 mls/hr IV BOLUS [facility] Sodium Chloride (Normal Saline) 1,000 mls @ 125 mls/hr IV ASDIRECTED [facility] Sodium Chloride (Normal Saline) 1,000 mls @ 999 mls/hr IV BOLUS REBEKAH Sodium Chloride (Normal Saline) 1,000 mls @ 125 mls/hr IV ASDIRECTED [facility] Sodium Chloride (Normal Saline) 1,000 mls @ 999 mls/hr IV .BOLUS ONE Stop: 09/27/20 02:20 Last Admin: 09/27/20 01:24 Dose: 999 mls/hr Documented by: Pantoprazole Sodium 40 mg/ (Sodium Chloride) 10 mls @ 300 mls/hr IV NOW ONE Stop: 09/28/20 11:16 Last Admin: 09/28/20 11:17 Dose: 300 mls/hr Documented by: Ibuprofen (Motrin) 600 mg PO ONETIME ONE Stop: 09/26/20 19:42 Last Admin: 09/26/20 19:45 Dose: 600 mg Documented by: Lorazepam (Ativan) 2 mg IVPUSH ONETIME ONE Stop: 09/26/20 15:56 Last Admin: 09/26/20 16:00 Dose: 2 mg Documented by: <Nika Puckett - Last Filed: 09/30/20 10:16> Discharge Summary - Hospital Course Brief History: I performed a history and physical exam of the patient and discussed management with resident. I have reviewed the residents note and agree with documented findings and plan unless otherwise specified in my note. I have seen and evaluated the patient and agree with the residents note unless specified in my note - Referral to Home Health Primary Care Physician: Flavia Delatorre MD - Patient Data Vitals - Most Recent: Last Vital Signs Temp 36.5 C 09/28/20 12:00 Pulse 99 09/28/20 12:00 Resp 18 09/28/20 12:00 BP 100/57 L 09/28/20 12:00 Pulse Ox 94 L 09/28/20 12:00 FRAN Results - Last 24 hrs: Microbiology 09/26/20 15:50 Aerobic Blood Culture - Preliminary Blood - Venous NO GROWTH AFTER 3 DAYS Anaerobic Blood Culture - Preliminary NO GROWTH AFTER 3 DAYS 09/26/20 15:50 Aerobic Blood Culture - Preliminary Blood - Venous - Lab Draw NO GROWTH AFTER 3 DAYS Anaerobic Blood Culture - Preliminary NO GROWTH AFTER 3 DAYS 09/26/20 16:50 Gram Stain - Final Cerebral Spinal Fluid CSF Culture - Final NO GROWTH AFTER 3 DAYS Med Orders - Current: Current Medications Discontinued Medications Acetaminophen (Tylenol) 650 mg RECTAL NOW ONE Stop: 09/26/20 15:50 Last Admin: 09/26/20 16:00 Dose: 650 mg Documented by: Acetaminophen (Tylenol) 650 mg PO Q4H PRN PRN Reason: Pain (Mild 1-3)/fever Last Admin: 09/28/20 14:59 Dose: 650 mg Documented by: Enoxaparin Sodium (Lovenox) 40 mg SUBCUT Q24H [facility] Last Admin: 09/27/20 23:32 Dose: 40 mg Documented by: Fentanyl (Fentanyl) 50 mcg IVPUSH ONETIME ONE Stop: 09/26/20 16:30 Last Admin: 09/26/20 16:44 Dose: 50 mcg Documented by: Ceftriaxone Sodium/Dextrose 2 (gm/ Premix) 50 mls @ 100 mls/hr IV ONETIME ONE Stop: 09/26/20 16:43 Last Admin: 09/26/20 16:32 Dose: 100 mls/hr Documented by: Lactated Ringer's (Ringers, Lactated) 1,000 mls @ 999 mls/hr IV .BOLUS ONE Stop: 09/26/20 17:22 Last Admin: 09/26/20 16:32 Dose: 999 mls/hr Documented by: Sodium Chloride (Normal Saline) 1,000 mls @ 999 mls/hr IV BOLUS REBEKAH Sodium Chloride (Normal Saline) 1,000 mls @ 125 mls/hr IV ASDIRECTED [facility] Sodium Chloride (Normal Saline) 1,000 mls @ 999 mls/hr IV BOLUS REBEKAH Sodium Chloride (Normal Saline) 1,000 mls @ 125 mls/hr IV ASDIRECTED [facility] Sodium Chloride (Normal Saline) 1,000 mls @ 999 mls/hr IV .BOLUS ONE Stop: 09/27/20 02:20 Last Admin: 09/27/20 01:24 Dose: 999 mls/hr Documented by: Sodium Chloride (Normal Saline) 1,000 mls @ 125 mls/hr IV ASDIRECTED [facility] Last Admin: 09/28/20 05:44 Dose: 125 mls/hr Documented by: Azithromycin 500 mg/ Sodium (Chloride) 250 mls @ 250 mls/hr IV DAILY [facility] Last Admin: 09/28/20 09:49 Dose: 250 mls/hr Documented by: Ceftriaxone Sodium/Dextrose 1 (gm/ Premix) 50 mls @ 100 mls/hr IV Q24H [facility] Last Admin: 09/27/20 15:09 Dose: 100 mls/hr Documented by: Pantoprazole Sodium 40 mg/ (Sodium Chloride) 10 mls @ 300 mls/hr IV NOW ONE Stop: 09/28/20 11:16 Last Admin: 09/28/20 11:17 Dose: 300 mls/hr Documented by: Ibuprofen (Motrin) 600 mg PO ONETIME ONE Stop: 09/26/20 19:42 Last Admin: 09/26/20 19:45 Dose: 600 mg Documented by: Ibuprofen (Motrin) 400 mg PO Q6H PRN PRN Reason: Pain (mild 1-3) Last Admin: 09/27/20 21:57 Dose: 400 mg Documented by: Levofloxacin (Levaquin) 750 mg PO Q24H [facility] Stop: 10/03/20 14:31 Last Admin: 09/28/20 14:58 Dose: 750 mg Documented by: Lorazepam (Ativan) 2 mg IVPUSH ONETIME ONE Stop: 09/26/20 15:56 Last Admin: 09/26/20 16:00 Dose: 2 mg Documented by: Ondansetron HCl (Zofran) 4 mg IVPUSH Q4H PRN PRN Reason: Nausea Last Admin: 09/28/20 11:18 Dose: 4 mg Documented by: Sodium Chloride (Saline Flush) 10 ml FLUSH ASDIRECTED PRN PRN Reason: Keep Vein Open Last Admin: 09/26/20 16:31 Dose: 10 ml Documented by: Sodium Chloride (Saline Flush) 2.5 ml FLUSH ASDIRECTED PRN PRN Reason: Keep Vein Open Last Admin: 09/26/20 16:31 Dose: 2.5 ml Documented by:
[2020-09-28] MEDS ORDERED: Levofloxacin 500 MG Tab PO SCH (14:30)
[2020-09-28] MEDS: Acetaminophen 325 MG Tab PO PRN (14:59)
== END 2020-09-28 15:00 | disposition home or self-care (01) ==
LOC: MW.ED 15:45 → MW.MS 18:49
PROVIDERS: ADMIT Internal Medicine; ATTEND Internal Medicine
DX: R41.82 Altered mental status, unspecified (principal); R51.9 Headache, unspecified; R50.9 Fever, unspecified; M79.10 Myalgia, unspecified site; R53.83 Other fatigue; Z20.828 Contact with and (suspected) exposure to other viral communicable diseases; Z88.0 Allergy status to penicillin; Z88.8 Allergy status to other drugs, medicaments and biological substances; Z79.899 Other long term (current) drug therapy
CPT/HCPCS: 0240U; 36415; 62270; 70450; 71045; 71250; 74176; 80053; 80305; 80307; 81001; 82550; 82945; 82962; 83605; 84145; 84157; 84484; 85025; 86308; 87040; 87070; 87205; 87389; 87635; 89050; 93005; 96365; 96375; 99291; A9270; C9113; J0456; J0696; J1650; J2060; J2405; J3010; J7030; J7050; J7120; U0002